=== PATIENT | female | born 1955 | race Caucasian/White ===

== ENCOUNTER 2020-04-12 06:52 | Outpatient (NON) | payer BC, SELFPAY ==
[2020-04-13 21:14] LABS: SARS-CoV-2 RNA PCR Negative
== END 2020-04-12 06:53 ==
LOC: ANHCOVIDDT 07:02
PROVIDERS: Visit Provider Emergency Medicine
DX: B34.9 Viral infection, unspecified (principal); Z20.828 Contact with and (suspected) exposure to other viral communicable diseases
CPT/HCPCS: 87635; C9803; U0003

== ENCOUNTER → 2020-05-25 11:12 | Outpatient (CLI) | payer BC, SELFPAY ==
--- NOTE | ~2020-05-25 | CT_ITS ---
EXAMINATION:CT lung screening DATE: 05/25/2020 11:44 INDICATION: Tobacco use. Current smoker with 41 pack year history. TECHNIQUE: Computed tomography (CT) of the chest was performed without intravenous contrast. Automate d exposure control and iterative reconstruction technique were employed. The dose-length product (DLP ) was 92.98 mGy-cm. COMPARISON: Chest CT 03/05/2019 FINDINGS: There is mild scarring at the lung apices. There are greater than 20 scattered pulmonary no dules in a random distribution measuring up to 7 mm, new from 03/05/19. No pleural effusion. The hear t size is normal. No pericardial effusion. There is mediastinal, bilateral hilar, left supraclavicula r, and right axillary lymphadenopathy. For example, a left supraclavicular node measures 20 x 11 mm. There is aortocaval and left para-aortic lymphadenopathy. There is moderate thoracic spondylosis. IMPRESSION: 1. New pulmonary nodules and chest and abdominal lymphadenopathy suspicious for metastatic disease. U ltrasound-guided core needle biopsy of a left supraclavicular lymph node is recommended. I called thi s result to Dr. Menon. Reviewed, dictated and finalized at location A. ON PICTURE PROJECTIONIST IMPRESSION: 1. New pulmonary nodules and chest and abdominal lymphadenopathy suspicious for metastatic disease. Ultrasound-guided core needle biopsy of a left supraclavic ular lymph node is recommended. I called this result to Dr. Menon.
== END ==
PROVIDERS: PCP Emergency Medicine; Visit Provider Emergency Medicine
DX: Z12.2 Encounter for screening for malignant neoplasm of respiratory organs (principal); Z87.891 Personal history of nicotine dependence; R91.8 Other nonspecific abnormal finding of lung field
CPT/HCPCS: 71271

== ENCOUNTER 2020-06-10 13:09 | Outpatient (CLI) | payer BC, SELFPAY ==
--- NOTE | ~2020-06-10 | US_ITS ---
EXAMINATION: US biopsy lymph node DATE: 06/10/2020 13:59 INDICATION: Pulmonary nodules and thoracic and abdominal lymphadenopathy. TECHNIQUE: The procedure including the risks and benefits was discussed with the patient. Risks discu ssed included bleeding and infection. The patient understood the risks and agreed to proceed. The sk in overlying the left supraclavicular region was prepped and draped in usual sterile fashion. Anesth etic was administered with 1% lidocaine subcutaneously. A 14 gauge core biopsy needle was advanced u nder continuous ultrasound observation to the lesion of interest. 5 core biopsy specimens were obtai abigail, 3 placed in RPMI media and 2 in formalin. The needle was removed and the entry site was cleaned and dressed. Post procedure ultrasound demonstrated no hemorrhage. FINDINGS: Ultrasound images demonstrate a 2.5 x 2.0 x 1.4 cm very hypoechoic left supraclavicular lym ph node. Subsequent images demonstrate biopsy needle advanced into the lymph node. IMPRESSION: 1. Successful Ultrasound-guided biopsy of an enlarged left supraclavicular lymph node Reviewed, dictated and finalized at location A. ENGINEER IMPRESSION: 1. Successful Ultrasound-guided biopsy of an enlarged left supraclavicular lymp h node
== END 2020-06-10 13:10 | disposition home or self-care (01) ==
PROVIDERS: PCP Emergency Medicine; Visit Provider Emergency Medicine
DX: C81.71 Other Hodgkin lymphoma, lymph nodes of head, face, and neck (principal); R91.1 Solitary pulmonary nodule
CPT/HCPCS: 38505; 76942; 88305; 88342

== ENCOUNTER 2020-06-27 10:13 | Outpatient (CLI) | payer BC, SELFPAY ==
--- NOTE | 2020-06-27 16:51 | WPDPFTINT ---
PFT Interpretation This is a pulmonary function test with pre and post-bronchodilator spirometry, plethysmography and diffusing capacity. The test was performed and results interpreted in accordance with the 2019 and 2005 ATS/ERS Task Force guidelines respectively using the Kuldeep/Tara reference equations. Findings: Spirometry: The contour the inspiratory and expiratory flow tracing are normal. The pre bronchodilator FVC is 2.66 L, 105% predicted. The pre bronchodilator FEV1 is 2.06 L, 112% predicted. The FEV1: FVC ratio 78%. The post bronchodilator FVC VC is 2.58 L, representing a 3% decrease. The post bronchodilator FEV1 is 2.08 L, representing 1% increase. Plethysmography: The total lung capacity is 3.38 L, 83% predicted. The functional residual capacity is 1.32 L, 56% predicted. The residual volume is 0.72 L, 47% predicted. Diffusing capacity: The absolute diffusion capacity is 10.6, 62% predicted. The diffusing capacity corrected for alveolar volume is 3.03, 81% predicted. Impression: The spirometry is normal without evidence of an obstructive abnormality. There is no significant improvement after inhaling a single dose of albuterol. There is a result reduction in the residual volume and functional residual capacity with a normal total lung capacity. This is an abnormal but nonspecific lung volume pattern. The absolute diffusing capacity is mildly decreased but normalizes when corrected for alveolar volume. There are no prior studies for comparison
== END 2020-06-27 10:14 | disposition home or self-care (01) ==
PROVIDERS: PCP Emergency Medicine; Visit Provider Internal Medicine Hematology & Oncology
DX: C81.12 Nodular sclerosis Hodgkin lymphoma, intrathoracic lymph nodes (principal); R91.8 Other nonspecific abnormal finding of lung field
CPT/HCPCS: 94060; 94726; 94729

== ENCOUNTER 2020-06-28 09:27 | Outpatient (CLI) | payer BC, SELFPAY ==
--- NOTE | 2020-06-28 | ECHO_ITS ---
Patient Info Name: Maribeth Rodriguez Age: 64 years : 1955 Gender: Female Ht: 60 in Wt: 128 lbs BSA: 1.58 m2 HR: 83 bpm BP: 114 / 78 mmHg Heart Rhythm: Sinus Rhythm Technical Quality: Good Exam Date: 06/28/2020 10:04 AM Exam Location: [facility] Patient Status: Outpatient Admit Date: 06/28/2020 Staff Ordering Physician: ElviaMatt MD Burn Table Operator: Sunni Isaac RDCS Attending Provider: Elvia, Matt Lynch MD Referring Physician: Elvia HACKETT; Exam Type: CA echo doppler color flow Study Info Indications c81.12 - hodgkin lymphoma intrathoracic lymph nodes r91.8 - Lung Nodule Complete two-dimentional, color flow and Doppler transthoracic echocardiogram is performed with agitated saline and with contrast to opacify the left ventricle and to improve the delineation of the left ventricle endocardial borders. Summary 1. Normal LV size and wall thickness, normal LV systolic function, ejection fraction 65-70%. Normal diastolic function. Lipomatus hypertrophy of atrial septum. No significant valve abnormalities, RVSP 36 mmHg. Small pericardial effusion, no echo evidence of tamponade. Sinus rhythm. Left Ventricle Left ventricular chamber dimension is normal. Left ventricular systolic function is normal, estimated at 65-70%. The left ventricular diastolic function is normal. Right Ventricle Right ventricular chamber dimension is normal. Right ventricular systolic function is normal. Left Atria Left atrial chamber dimension is normal. Right Atria Right atrial chamber dimension is normal. Aortic Valve The aortic valve is normal. Pulmonic Valve The pulmonic valve is normal. There is trace pulmonic regurgitation. Mitral Valve The mitral valve has normal leaflets. There is trace mitral valve regurgitation. Tricuspid Valve The tricuspid valve leaflets are normal. Mild pulmonary hypertension, estimated pulmonary arterial systolic pressure is 36 mmHg. Pericardium/Pleural There is small pericardial effusion. Inferior Vena Cava Normal inferior vena cava with >50% collapse upon inspiration consistent with normal right atrial pressure, 10 mmHg. Aorta The aortic root size at the sinus of Valsalva is normal. Left Ventricular Outflow Tract Name Value Normal LVOT 2D LVOT Diameter 1.9 cm LVOT Doppler LVOT Peak Gradient 6 mmHg LVOT Mean Gradient 3 mmHg LVOT VTI 22 cm LVOT VTI/AV VTI Ratio 0.9 LVOT Stroke Volume 66 ml LVOT CO 5.4 l/min LVOT CI 3.4 l/min/m2 Pulmonic Valve Name Value Normal RVOT Doppler RVOT Peak Gradient 2 mmHg PV Doppler
== END 2020-06-28 09:28 | disposition home or self-care (01) ==
PROVIDERS: PCP Emergency Medicine; Visit Provider Internal Medicine Hematology & Oncology
DX: R91.8 Other nonspecific abnormal finding of lung field (principal); C81.12 Nodular sclerosis Hodgkin lymphoma, intrathoracic lymph nodes
CPT/HCPCS: 93306

== ENCOUNTER 2020-08-30 12:47 | Outpatient (CLI) | payer BC, SELFPAY ==
--- NOTE | 2020-08-30 | ECG_ITS ---
Measurements Intervals [place] Rate: 72 P: 39 MD: 118 QRS: 71 QRSD: 88 T: 40 QT: 390 QTc: 428 Interpretive Statements SINUS RHYTHM WITH SHORT MD INTERVAL BORDERLINE ECG Electronically Signed On 08-30-2020 14:17:55 CDT by Keenan Xie D.O.
--- NOTE | 2020-08-30 | ECHO_ITS ---
Patient Info Name: Maribeth Rodriguez Age: 64 years : 1955 Gender: Female Ht: 60 in Wt: 128 lbs BSA: 1.58 m2 HR: 80 bpm BP: 107 / 82 mmHg Heart Rhythm: Sinus Rhythm Technical Quality: Good Exam Date: 08/30/2020 1:11 PM Exam Location: [facility] Patient Status: Outpatient Admit Date: 08/30/2020 Staff Ordering Physician: ElviaMatt MD [employer]: Terence Dixon RDCS, RT Attending Provider: Elvia, Matt Lynch MD Referring Physician: Elvia HACKETT; Exam Type: CA echo doppler color flow Study Info Indications C80.1 - Malignant (primary) neoplasm, unspecified Complete two-dimensional, color flow and Doppler transthoracic echocardiogram is performed. Strain analysis performed. Summary 1. Complete two-dimensional, color flow and Doppler transthoracic echocardiogram is performed. 2. Left ventricular chamber size and systolic function are normal with no regional wall motion abnormalities with an estimated ejection fraction of 60-65%. Calculated ejection fraction is 63%. Mild concentric left ventricular hypertrophy. Global longitudinal strain is mildly decreased at -14%, suggesting early systolic dysfunction. 3. Borderline left atrial enlargement. 4. No significant valve disease. 5. Normal sinus rhythm. Left Ventricle Left ventricular chamber dimension is normal. Left ventricular systolic function is normal, estimated at Empty. There is mildly increased left ventricular wall thickness. Left ventricular septal wall motion is normal. The left ventricular diastolic function is grade I diastolic dysfunction. Global longitudinal strain is mildly elevated at 14 %. Left ventricular chamber size and systolic function are normal with no regional wall motion abnormalities with an estimated ejection fraction of 60-65%. Calculated ejection fraction is 63%. Mild concentric left ventricular hypertrophy. Global longitudinal strain is mildly decreased at -14%, suggesting early systolic dysfunction. Right Ventricle Right ventricular chamber dimension is normal. Right ventricular systolic function is normal. Left Atria Left atrial chamber dimension is mildly enlarged. Right Atria Right atrial chamber dimension is normal. Aortic Valve The aortic valve is trileaflet. There is no aortic valve sclerosis. There is no aortic valve stenosis. There is no aortic valve regurgitation. Pulmonic Valve The pulmonic valve is normal. There is no pulmonic valve stenosis. There is no pulmonic regurgitation. Mitral Valve The mitral valve has normal leaflets. There is no mitral valve stenosis. There is no mitral valve regurgitation. Tricuspid Valve The tricuspid valve leaflets are normal. There is no significant tricuspid valve stenosis. There is trace tricuspid valve regurgitation. No pulmonary hypertension, estimated pulmonary arterial systolic pressure is Empty. Pericardium/Pleural The pericardium appears normal. There is no pericardial effusion. Inferior Vena Cava Normal inferior vena cava with >50% collapse upon inspiration consistent with Empty right atrial pressure, Empty. Aorta The aortic root size at the sinus of Valsalva is normal. The prox ascending aorta size is normal. Left Ventricular Outflow Tract Name Value Normal LVOT 2D --
== END 2020-08-30 12:48 | disposition home or self-care (01) ==
LOC: ANHCARD 12:48
PROVIDERS: PCP Emergency Medicine; Visit Provider Internal Medicine Hematology & Oncology
DX: C81.12 Nodular sclerosis Hodgkin lymphoma, intrathoracic lymph nodes (principal); R42 Dizziness and giddiness; I51.89 Other ill-defined heart diseases
CPT/HCPCS: 93005; 93306

== ENCOUNTER 2020-08-31 12:52 | Outpatient (CLI) | payer BC, SELFPAY ==
--- NOTE | 2020-08-31 17:43 | P.PCNPFT_ITS ---
PFT Interpretation This is a pulmonary function test with pre and post-bronchodilator spirometry, plethysmography and diffusing capacity. The test was performed and results interpreted in accordance with the 2019 and 2005 ATS/ERS Task Force guidelines respectively using the Global Lung Function Initiative-2012 reference equations. Patient demonstrated good effort and c ooperation. Reproducibility criteria were met. The quality of the pre bronchodilator spirometry maneuver was Grade A and post bronchodilator spirometry maneuver was Grade A. Findings: Spirometry: The contour the inspiratory and expiratory flow tracing are normal. The pre bronchodilator FVC is 2.55 L, 96% predicted. The pre bronchodilator FEV1 is 1.92 L, 92% predicted. The FEV1: FVC ratio 75%. The post bronchodilator FVC is 2.60 L, representing a 2% increase. The post bronchodilator FEV1 is 2.04 L, representing a 7% increase. Plethysmography: The total lung capacity is 4.29 L, 97% predicted. Functional residual capacity 2.50 L, 101% predicted. The residual volume is 1.74 L, 95% predicted. Diffusing capacity: The absolute diffusion capacity is 10.1, 51% predicted. The diffusing capacity corrected for alveolar volume is 3.08, 67% predicted. In comparison to previous pulmonary function tests in our laboratory on 06/27/2020 the post bronchodilator FVC is unchanged from 2.58 L to 2.60 L. The post bronchodilator FEV1 is unchanged from 2.08 L to 2.04 L. The total lung capacity has increased from 3.38 L to 4.29 L. The functional residual capacity has increased from 1.32 L to 2.50 L. The residual volume has increased from 0.72 L to 1.74 L. The absolute diffusion capacity is unchanged from 10.6 to 10.1. The diffusing capacity corrected for alveolar volume is unchanged from 3.03 to 3.08 Impression: The spirometry is normal without evidence of an obstructive abnormality. There is no significant improvement after inhaling a single dose of albuterol. The lung volumes are normal. The absolute diffusing capacity is moderately decreased and remains mildly decreased when corrected for alveolar volume. when compared to the previous pulmonary function test on 06/27/2020 there has been a greater than anticipated time dependent increase in total lung capacity, functional residual capacity and residual volume with no change in the forced vital capacity, FEV1, absolute diffusion capacity and diffusing capacity corrected for alveolar volume. Clinical correlation is recommended. PFT Procedure Performed PFT Procedure Performed Spirometry with Pre/Post Bronchodilator Plethysmography (Lung Vol) Diffusing Cap (DLCO)
== END 2020-08-31 12:53 | disposition home or self-care (01) ==
PROVIDERS: PCP Emergency Medicine; Visit Provider Internal Medicine Hematology & Oncology
DX: C81.12 Nodular sclerosis Hodgkin lymphoma, intrathoracic lymph nodes (principal); R42 Dizziness and giddiness; Z51.11 Encounter for antineoplastic chemotherapy
CPT/HCPCS: 94060; 94726; 94729

== ENCOUNTER 2020-09-01 07:33 | Outpatient (CLI) | payer BC, SELFPAY ==
--- NOTE | ~2020-09-01 | PE_ITS ---
EXAMINATION: PET skull to mid thigh DATE: 09/01/2020 09:43 INDICATION: Nodular sclerosing Hodgkin's lymphoma TECHNIQUE: Blood glucose level was 105 mg/dL. 10.56 mCi of 18-fluorodeoxyglucose (18-FDG) was adminis tered i.v. Low dose computed tomography (CT) images were acquired from the base of the brain to the p roximal thighs for attenuation correction and anatomic localization. Positron emission tomography (PE T) images were acquired in the same distribution beginning 63 minutes after injection. The dose-lengt h product (DLP) was 345.58 mGy-cm. COMPARISON: CT, 05/25/2020 FINDINGS: Head/neck: No abnormal FDG uptake is identified. No cervical lymphadenopathy is identified. FDG uptak e in the oral cavity and vocal cords without suspicious CT correlate is likely physiologic. Chest: The previously identified axillary and mediastinal lymphadenopathy has resolved. No abnormal F DG uptake is identified. A right internal jugular Port-A-Cath ends with its tip in the proximal right atrium. No pathologically enlarged thoracic lymph nodes are identified. The heart size is normal. Al though limited by respiratory motion artifact, the previously identified pulmonary nodules have decre ased in size. There is no pleural effusion or pneumothorax. Abdomen/pelvis/proximal thighs: Physiologic FDG activity is present in the bowel and urinary tract. T here are mildly enlarged right obturator lymph nodes without abnormal FDG uptake. The liver, spleen, pancreas, gallbladder, and adrenal glands are normal. The kidneys are unremarkable. There is calcifie d atherosclerosis of the aorta and many of the other arteries. There is no free intraperitoneal gas o r evidence of bowel obstruction. Musculoskeletal: There is mild cervical, thoracic, and lumbar spondylosis. No abnormal FDG uptake is identified. IMPRESSION: 1. Resolution of previously described thoracic lymphadenopathy no abnormal FDG uptake identified, con sistent with treatment response. 2. Decrease in size of multiple pulmonary nodules, likely resolving infection/inflammation or possibl y lymphoma. 3. Right obturator lymphadenopathy without abnormal FDG uptake. Reviewed, dictated and finalized at location B. IMPRESSION: 1. Resolution of previously described thoracic lymphadenopathy no abnormal FDG uptake identified, consistent with treatment response. 2. Decrease in size of multiple pulmonary nodules, likely resolving infection/i nflammation or possibly lymphoma. 3. Right obturator lymphadenopathy without abnormal FDG uptake.
[2020-09-01 07:59] LABS: Glucose Point of Care 105 (65-105)
== END 2020-09-01 07:34 | disposition home or self-care (01) ==
PROVIDERS: PCP Emergency Medicine; Visit Provider Internal Medicine Hematology & Oncology
DX: C81.12 Nodular sclerosis Hodgkin lymphoma, intrathoracic lymph nodes (principal); R42 Dizziness and giddiness
CPT/HCPCS: 78815; 82948; A9552

== ENCOUNTER → 2020-10-14 14:34 | Outpatient (CLI) | payer BC, SELFPAY ==
--- NOTE | ~2020-10-14 | MM_ITS ---
EXAMINATION: MM screening miley BI w demetrius HISTORY: Screening mammogram TECHNIQUE: Craniocaudal and mediolateral oblique 3-D tomosynthesis images were obtained and synthetic 2-D images were generated. CAD analysis was submitted and interpreted. COMPARISON: No prior mammogram is available for comparison at this institution. BREAST PARENCHYMAL COMPOSITION: There are scattered areas of fibroglandular density. FINDINGS: Mild stable fibroglandular asymmetry. There is no evidence of suspicious mass, calcificatio n, or architectural distortion to suggest malignancy in either breast. There has been no suspicious i nterval change. IMPRESSION: 1. No mammographic evidence of malignancy. 2. Recommend routine screening mammography in one year. BI-RADS Category 2: Benign finding(s). Reviewed, dictated and finalized at location A.
== END ==
PROVIDERS: PCP Emergency Medicine; Visit Provider Emergency Medicine
DX: Z12.31 Encounter for screening mammogram for malignant neoplasm of breast (principal)
CPT/HCPCS: 77063; 77067

== ENCOUNTER 2020-11-22 11:51 | Outpatient (CLI) | payer BC, SELFPAY ==
--- NOTE | ~2020-11-22 | PE_ITS ---
EXAMINATION: PET skull to mid thigh DATE: 11/22/2020 13:54 INDICATION: Lung nodules. Nodular sclerosis Hodgkin's lymphoma. TECHNIQUE: Blood glucose level was 91 mg/dL. 10.444 mCi of 18-fluorodeoxyglucose (18-FDG) was adminis tered i.v. Low dose computed tomography (CT) images were acquired from the base of the brain to the p roximal thighs for attenuation correction and anatomic localization. Automated exposure control was e mployed. Dose-length product (DLP) was 320 mGy-cm. Positron emission tomography (PET) images were acq uired in the same distribution. COMPARISON: PET CT 09/01/2020, chest CT 06/10/20, 03/05/19 FINDINGS: Head/neck: There is increased activity in the oral cavity, oropharynx, and glottis without CT correla te, likely physiologic. There are no pathologically enlarged lymph nodes. There is no lymph node acti vity. Chest: There is a right internal jugular port with tip in right atrium. There is mild scarring at lef t lung apex. The pulmonary nodules described on 05/25/20 have resolved. There are peripheral groundglas s opacities in the lungs with an inferior predominance. There is smooth septal thickening in the infe rior lungs. There is peripheral mildly increased activity in the inferior lungs measuring up to 4.1 c m in right lower lobe. The heart size is normal. There are coronary artery calcifications. No pericar dial effusion. There are no pathologically enlarged lymph nodes. There is no lymph node activity. Abdomen/pelvis/proximal thighs: The liver, gallbladder, spleen, pancreas, adrenal glands, and kidneys are normal. There are no dilated loops of bowel. There are no pathologically enlarged lymph nodes. T here is no lymph node activity. There is no free intraperitoneal fluid. There is no osseous malignanc y. IMPRESSION: 1. Deauville score of 1. 2. Worsened diffuse lung disease with a peripheral and lower lung predominance. The differential diag nosis includes mild pulmonary edema, inflammation (including drug reaction), and atypical pneumonia. Reviewed, dictated and finalized at location A. IMPRESSION: 1. Deauville score of 1. 2. Worsened diffuse lung disease with a peripheral and lower lung predominance. The differential diagnosis includes mild pulmonary edema, inflammation (includ ing drug reaction), and atypical pneumonia.
[2020-11-22 12:28] LABS: Glucose Point of Care 91 mg/dl (65-105)
== END 2020-11-22 11:52 | disposition home or self-care (01) ==
PROVIDERS: PCP Emergency Medicine; Visit Provider Internal Medicine Hematology & Oncology
DX: C81.10 Nodular sclerosis Hodgkin lymphoma, unspecified site (principal); R91.8 Other nonspecific abnormal finding of lung field
CPT/HCPCS: 78815; 82948; A9552

== ENCOUNTER → 2021-02-20 09:03 | Outpatient (CLI) | payer BC, SELFPAY ==
--- NOTE | ~2021-02-20 | CT_ITS ---
EXAMINATION: CT chest abdomen pelvis w con DATE: 02/20/2021 09:49 INDICATION: Nodular sclerosing Hodgkin's lymphoma. TECHNIQUE: Computed tomography (CT) of the chest, abdomen, and pelvis was performed with 100 mL Omnip aque 350 intravenous contrast. Automated exposure control and iterative reconstruction technique were employed. The dose-length product was 591.54 mGy-cm. COMPARISON: Chest CT 05/25/2020, PET/CT 11/22/20 FINDINGS: CHEST CT: There is mild scarring at the lung apices. There is mild emphysema. There is widespread peripheral se ptal thickening in the lungs. No bronchiectasis or honeycombing. No pleural effusion. There is a righ t internal jugular port with tip in right atrium. The heart size is normal. There are coronary artery calcifications. No pericardial effusion. There is mild mediastinal lymphadenopathy. For example, 10 x 11 mm right paratracheal lymph node previously measured 14 x 10 mm. There is moderate thoracic spon dylosis. ABDOMEN/PELVIS CT: The liver, spleen, pancreas, adrenal glands, and left kidney are normal. There is a 2.0 cm cyst in ri ght kidney. There is diverticulosis of the colon without evidence of diverticulitis. There are no dil ated loops of bowel. There are no pathologically enlarged lymph nodes. There is no free intraperitone al fluid. There is mild lumbar spondylosis. IMPRESSION: 1. Borderline enlarged mediastinal lymph nodes, stable from 11/22/2020 when PET Deauville score was 1, consistent with treated lymphoma. 2. Diffuse lung disease, improved from 11/22/2020. The differential diagnosis includes mild pulmonary e rayray and inflammation (including drug reaction). Reviewed, dictated and finalized at location A. IMPRESSION: 1. Borderline enlarged mediastinal lymph nodes, stable from 11/22/2020 when PET D eauville score was 1, consistent with treated lymphoma. 2. Diffuse lung disease, improved from 11/22/2020. The differential diagnosis inc ludes mild pulmonary edema and inflammation (including drug reaction).
[2021-02-20 09:32] LABS: Estimated Glomerular Filt Rate > 60
== END ==
PROVIDERS: PCP Emergency Medicine; Visit Provider Internal Medicine Hematology & Oncology
DX: C81.12 Nodular sclerosis Hodgkin lymphoma, intrathoracic lymph nodes (principal); R91.8 Other nonspecific abnormal finding of lung field
CPT/HCPCS: 71260; 74177; Q9967

== ENCOUNTER → 2021-07-25 09:54 | Outpatient (CLI) | payer BC, SELFPAY ==
--- NOTE | ~2021-07-25 | CT_ITS ---
EXAMINATION: CT chest abdomen pelvis w con EXAM DATE: 07/25/2021 10:32 INDICATION: Nodular sclerosis Hodgkin lymphoma, intrathoracic TECHNIQUE: Spiral CT of the chest, abdomen and pelvis was performed following intravenous injection o f 100 mL Omnipaque 350. Axial, coronal and sagittal images chest, abdomen and pelvis were reviewed. Coronal maximum intensity pixel images of chest reviewed. The dose-length product (DLP) for this ex amination was 687.67 mGy-cm. The exposure was tailored according to patient size (auto mA exposure c ontrol), and iterative reconstruction (ASIR) was used as additional dose reduction technique. Compari son is made to prior examination from 02/20/2021. FINDINGS: CHEST: Again perceptible basilar peripheral interlobular septa, probably mild chronic interstitial l donovan disease. Mild emphysema and bronchiectasis. No suspicious lung opacities. There are no pleural o r pericardial effusions. Tracheobronchial tree is patent. There has been mild interval decrease in size of previously seen mediastinal lymphadenopathy. For example a precarinal lymph node that measure d 10 mm on previous exam measures 8 mm on this exam. Appearance is consistent with treated lymphoma. Right-sided portacatheter, tip at the cavoatrial junction. No central pulmonary emboli. There is no p neumothorax. Heart normal in size. There is mild coronary arterial calcification, arterial sclero sis. ABDOMEN PELVIS: The liver, spleen, adrenal glands and pancreas are unremarkable. Gallbladder is unre markable. No biliary obstruction. Portal and splenic veins are patent. Kidneys enhance symmetrical ly. There is no hydronephrosis. The uterus is unremarkable. The bladder is unremarkable. There is no retroperitoneal or pelvic lymphadenopathy. There is mild scattered arteriosclerotic disease. There are no findings to suggest appendicitis. The stomach and small bowel are unremarkable. There is expected amount of colonic stool. No free intraperitoneal gas. There are mild bony degenerativ e changes. IMPRESSION: 1. Slight decrease in size of mediastinal lymph nodes, now within normal size limits. Appearance is consistent with treated lymphoma. 2. Mild interstitial lung disease, emphysema and bronchiectasis. 3. Unremarkable abdomen and pelvis. Reviewed, dictated and finalized at location A. GATHERING TECHNICIAN
[2021-07-25 10:21] LABS: Estimated Glomerular Filt Rate > 60
== END ==
PROVIDERS: PCP Emergency Medicine; Visit Provider Internal Medicine Hematology & Oncology
DX: C81.12 Nodular sclerosis Hodgkin lymphoma, intrathoracic lymph nodes (principal); J84.9 Interstitial pulmonary disease, unspecified; J47.9 Bronchiectasis, uncomplicated
CPT/HCPCS: 71260; 74177; Q9967

== ENCOUNTER 2021-11-18 08:59 | Outpatient (CLI) | payer MEDICARE, BC, SELFPAY ==
--- NOTE | ~2021-11-18 | MM_ITS ---
EXAMINATION: MM screening miley BI w demetrius HISTORY: Screening TECHNIQUE: Craniocaudal and mediolateral oblique 3-D tomosynthesis images were obtained and synthetic 2-D images were generated. CAD analysis was submitted and interpreted. COMPARISON: Comparison to multiple prior studies sequentially, with oldest reviewed study dated 06/17. BREAST PARENCHYMAL COMPOSITION: . Breast composed of scattered areas of fibroglandular density FINDINGS: There is a focal asymmetry in the lateral aspect of the left breast on CC view, middle thir d. Possible architectural distortion at this location. There is right axillary lymphadenopathy, not d efinitely seen on prior examination. IMPRESSION: 1. Focal right breast asymmetry lateral aspect of the left breast on CC view. New right axillary lymp hadenopathy. 2. Additional mammographic views and possible breast ultrasound are recommended. BI-RADS Category 0: Incomplete: Needs additional imaging evaluation. Reviewed, dictated and finalized at location A. IMPRESSION: 1. Focal right breast asymmetry lateral aspect of the left breast on CC view. N ew right axillary lymphadenopathy. 2. Additional mammographic views and possible breast ultrasound are recommended . BI-RADS Category 0: Incomplete: Needs additional imaging evaluation.
--- NOTE | ~2021-11-18 | DEXA_ITS ---
Bone Density Report Name: ELMA NOLASCO Age: 65 Sex: Female Ethnicity: White Date of : 1955 Indication: postmenopausal osteoporosis; cancer; Referring Provider: ANA ALVES Study: Bone densitometry was performed. Exam Date: November 18, 2021 Accession number: [id number] Bone Density: Region BMD T-score Z-score Classification AP Spine (L1-L4) 0.713 -3.0 -1.3 Osteoporosis Femoral Neck (Left) 0.743 -1.0 0.5 Normal Total Hip (Left) 0.807 -1.1 0.1 Osteopenia Femoral Neck (Right) 0.632 -2.0 -0.5 Osteopenia Total Hip (Right) 0.728 -1.8 -0.5 Osteopenia Total Hip Mean 0.768 -1.5 -0.2 Osteopenia World Health Organization criteria for BMD impression classify patients as: Normal (T-score at or above -1.0), Osteopenia (T-score between -1.0 and -2.5), or Osteoporosis (T-score at or below -2.5). 10-year Fracture Risk: FRAX not reported because: Some T-score for Spine Total or Hip Total or Femoral Neck at or below -2.5 Previous Exams: Region Exam Age BMD T-score BMD Change BMD Change Date g/cm2 vs Baseline vs Previous AP Spine(L1-L4) 11/18/2021 65 0.713 -3.0 -0.063* -0.063* 04/06/2019 63 0.776 -2.5 Total Hip(Left) 11/18/2021 65 0.807 -1.1 -0.095* -0.095* 04/06/2019 63 0.901 -0.3 Total Hip(Right) 11/18/2021 65 0.728 -1.8 -0.110* -0.110* 04/06/2019 63 0.837 -0.9 *Denotes significance at 95% confidence level, LSC for AP Spine = 0.022 g/cm2, LSC for Total Hip = 0.027 g/cm2 Clinical Information Provided by Patient: Smokes Has used the following medications: Vitamin D, Calcium Has the following medical conditions: Cancer, HODGKINS LYMPH Patient maximum height was 60 Menopause Age: 54 No regular weight bearing exercise Drinks caffeinated beverages Onset of menses at age 12 Number of children 2 Impression: The patient has osteoporosis, based on the Total Spine T-score. The patient has risk factors, including: smoking. The BMD for the AP Spine(L1-L4) decreased, changing by -0.063 since the last DXA exam. The BMD for the Total Hip(Left) decreased, changing by -0.095 since the last DXA exam. The BMD for the Total Hip(Right) decreased, changing by -0.110 since the last DXA exam. Discussion: INCREASED RISK OF FRACTURE. BONE DENSITY IS UNDESIRABLY LOW AT ONE OR MORE SKELETAL SITES, CONSISTENT WITH POSTMENOPAUSAL OSTEOPOROSIS. This patient's lowest T-score meets the World Health Organization's (WHO) crit
== END 2021-11-18 09:00 ==
PROVIDERS: PCP Emergency Medicine; Visit Provider Emergency Medicine
DX: Z12.31 Encounter for screening mammogram for malignant neoplasm of breast (principal); M81.0 Age-related osteoporosis without current pathological fracture; R92.8 Other abnormal and inconclusive findings on diagnostic imaging of breast; M85.851 Other specified disorders of bone density and structure, right thigh; M85.852 Other specified disorders of bone density and structure, left thigh
CPT/HCPCS: 77063; 77067; 77080

== ENCOUNTER → 2022-01-01 08:14 | Outpatient (CLI) | payer MEDICARE, BC, SELFPAY ==
--- NOTE | ~2022-01-01 | MMUS_ITS ---
EXAMINATION: MM diagnostic miley BI w demetrius, US breast LT limited HISTORY: Focal left breast asymmetry/possible architectural distortion reported in lateral aspect of left breast on 11/18/2021 craniocaudal view. New right axillary lymphadenopathy reported on 11/18/2021 screening mammogram TECHNIQUE: Additional 3-D tomosynthesis images of both breasts were performed and synthetic 2-D image s were generated. CAD analysis was submitted and interpreted. High resolution upper outer and lower-o uter quadrant left breast ultrasound was performed. COMPARISON: 11/18/2021, 10/14/2020, 04/06/2019, outside 06/17/2014 and 09/06/2011 bilateral screening mamm ogram examinations FINDINGS: MAMMOGRAPHIC FINDINGS: No suspicious reproducible mass or architectural distortion of either breast is evident. The suggested adenopathy on 11/18/2021 actually corresponds to the right Port-A-Cath reservoir, not lym phadenopathy. ULTRASOUND: No suspicious mass or shadowing or other significant sonographic finding is noted in the upper outer or lower outer quadrant of the left breast. IMPRESSION: 1. No mammographic evidence of malignancy 2. Routine mammographic screening is recommended. BI-RADS Category 1: Negative Reviewed, dictated and finalized at location A. IMPRESSION: 1. No mammographic evidence of malignancy 2. Routine mammographic screening is recommended. BI-RADS Category 1: Negative
== END ==
PROVIDERS: PCP Emergency Medicine; Visit Provider Emergency Medicine
DX: Z00.01 Encounter for general adult medical examination with abnormal findings (principal); R92.8 Other abnormal and inconclusive findings on diagnostic imaging of breast
CPT/HCPCS: 76642; 77062; 77066; G0279

== ENCOUNTER 2022-01-25 12:45 | Outpatient (CLI) | payer MEDICARE, BC, SELFPAY ==
--- NOTE | ~2022-01-25 | CT_ITS ---
EXAMINATION: CT chest abdomen pelvis w con DATE: 01/25/2022 13:23 INDICATION: Hodgkin lymphoma TECHNIQUE: Transaxial computed tomographic images of the chest, abdomen, and pelvis were obtained aft er the administration of 100 cc of Omnipaque 350 intravenous contrast. The dose-length product (DLP) was 416.82 mGy-cm. Automated exposure control and iterative reconstruction technique were employed. COMPARISON: 07/25/2021 FINDINGS: CHEST CT: There are no pathologically enlarged thoracic lymph nodes. The lungs are free of acute opacities. No pleural effusion or pneumothorax. The heart size is normal. There is calcified coronary artery athero sclerosis. There is mild thoracic spondylosis. ABDOMEN/PELVIS CT: The liver is diffusely low in attenuation when compared with the spleen, consistent with hepatic stea tosis. The spleen, pancreas, gallbladder, and adrenal glands are normal. Cysts of the kidneys measure up to 2 cm on the right. No pathologically enlarged abdominal or pelvic lymph nodes are identified. There is no free intraperitoneal gas or evidence of bowel obstruction. There is mild lumbar spondylos is. A tiny fat-containing umbilical hernia is noted. IMPRESSION: 1. No lymphadenopathy of the chest, abdomen, or pelvis. Reviewed, dictated and finalized at location B.
[2022-01-25 13:22] LABS: Estimated Glomerular Filt Rate > 60
== END 2022-01-25 12:46 | disposition home or self-care (01) ==
LOC: ANHIMG 12:48
PROVIDERS: PCP Emergency Medicine; Visit Provider Internal Medicine Hematology & Oncology
DX: C81.12 Nodular sclerosis Hodgkin lymphoma, intrathoracic lymph nodes (principal); N28.1 Cyst of kidney, acquired
CPT/HCPCS: 71260; 74177; Q9967

== ENCOUNTER 2022-02-02 11:09 | Outpatient (CLI) | payer MEDICARE, BC, SELFPAY ==
--- NOTE | ~2022-02-02 | MR_ITS ---
EXAMINATION: MR lumbar spine wo con DATE: 02/02/2022 11:41 INDICATION: Low back pain. Right-sided sciatica. TECHNIQUE: Magnetic resonance imaging (MRI) of the lumbar spine was performed without intravenous con trast. Sequences included sagittal T2-weighted FSE, sagittal T2-weighted FS FSE, sagittal T1-weighted FSE, and axial T2-weighted FSE. COMPARISON: None FINDINGS: There is 3 degrees dextrocurvature of thoracolumbar spine. There is 4 mm anterolisthesis of L5 on S1. Vertebral body heights are normal. There is a hemangioma in L2 vertebral body. There is mi ldly decreased disc height at L4-L5 and L5-S1. The distal spinal cord signal intensity is normal. The conus medullaris is at L1. There is a 2.0 cm cyst in right kidney. The following disc levels are spe cifically discussed: L1-L2: The disc does not extend beyond the endplate margin. There is no facet joint osteoarthritis. T here is no neural foraminal stenosis. There is no central canal stenosis. L2-L3: The disc does not extend beyond the endplate margin. There is mild right facet joint osteoarth ritis. There is no neural foraminal stenosis. There is no central canal stenosis. L3-L4: The disc is bulging. There is severe bilateral facet joint osteoarthritis. There is mild right neural foraminal stenosis. There is mild central canal stenosis. L4-L5: The disc is bulging and has an annular fissure. There is severe bilateral facet joint osteoart hritis. There is mild bilateral neural foraminal stenosis. There is mild central canal stenosis. L5-S1: The disc does not extend beyond the endplate margin. There is severe bilateral facet joint ost eoarthritis. There is mild right neural foraminal stenosis. There is no central canal stenosis. IMPRESSION: 1. Mild lumbar spondylosis. Reviewed, dictated and finalized at location A. IMPRESSION: 1. Mild lumbar spondylosis.
== END 2022-02-02 11:10 ==
PROVIDERS: PCP Emergency Medicine; Visit Provider Emergency Medicine
DX: M54.41 Lumbago with sciatica, right side (principal); M47.896 Other spondylosis, lumbar region
CPT/HCPCS: 72148

== ENCOUNTER → 2022-02-07 14:24 | Outpatient (CLI) | payer MEDICARE, BC, SELFPAY ==
--- NOTE | ~2022-02-07 | US_ITS ---
US axilla RT DATE: 02/07/2022 14:59 INDICATION: Lymphadenopathy TECHNIQUE: Real-time imaging of the right axillary soft tissues was performed. COMPARISON: 01/25/2022 CT chest FINDINGS: No suspicious mass or shadowing or enlarged lymph nodes are identified. IMPRESSION: Negative Reviewed, dictated and finalized at Location A. Reviewed, dictated and finalized at location B. IMPRESSION: Negative
== END ==
PROVIDERS: PCP Emergency Medicine; Visit Provider Emergency Medicine
DX: R59.1 Generalized enlarged lymph nodes (principal)
CPT/HCPCS: 76882

== ENCOUNTER → 2023-03-19 14:07 | Outpatient (CLI) | payer MEDICARE, BC, SELFPAY ==
--- NOTE | ~2023-03-19 | MM_ITS ---
EXAMINATION: MM screening [facility] BI w demetrius HISTORY: Screening mammogram TECHNIQUE: Craniocaudal and mediolateral oblique 3-D tomosynthesis images were obtained and synthetic 2-D images were generated. CAD analysis was submitted and interpreted. COMPARISON: 01/01/2022, 11/18/2021, 10/14/2020, 04/06/2019 BREAST PARENCHYMAL COMPOSITION: There are scattered areas of fibroglandular density. FINDINGS: No suspicious mass, calcification, or architectural distortion are identified in either moriah ast to suggest malignancy. There has been no suspicious interval change. IMPRESSION: 1. No mammographic evidence of malignancy. 2. Recommend routine screening mammography in one year. BI-RADS Category 1: Negative Reviewed, dictated and finalized at location A.
== END ==
PROVIDERS: PCP Emergency Medicine; Visit Provider Emergency Medicine
DX: Z12.31 Encounter for screening mammogram for malignant neoplasm of breast (principal)
CPT/HCPCS: 77063; 77067

== ENCOUNTER 2023-04-09 09:12 | Outpatient (CLI) | payer MEDICARE, BC, SELFPAY ==
--- NOTE | 2023-04-09 | EST_ITS ---
Patient Info Name: Maribeth Rodriguez Age: 67 years : 1955 Gender: Female Ht: 60 in Wt: 145 lbs BSA: 1.69 m2 Exam Date: 04/09/2023 11:05 AM Exam Location: Echo Lab Patient Status: Outpatient Admit Date: 04/09/2023 Staff Ordering Physician: Cruzito Menon MD Attending Provider: Cruzito Menon MD Exercise Technologist: Sunni Isaac RDCS Exercise Physician: Keenan Xie DO Exam Type: CA stress test treadmill w NM Study Info Indications I25.10 - CORONARY ARTERY DISEASE OF [place] ARTERY WITHOUT ANGINA PECTORIS A nuclear stress test was performed. Summary 1. 1. Abnormal Keshawn exercise stress test for ischemic ST changes by ECG criteria. 2. 2. Reduced functional capacity, achieving 6.8 METs of workload. 3. 3. Appropriate HR response to exercise. 4. 4. Appropriate HR recovery at 1 minute post exercise. 5. 5. Nuclear scan to follow and will be reported separately. Please correlate with it. 6. 6. Patient informed of the above results. Protocol: Keshawn Stress ECG Details Stage: REST Duration (min): 1 min : 1 sec Speed (mph): 0.0 Grade (%): 0 HR (bpm): 69 SBP (mmHg): 131 DBP (mmHg): 85 METS: --- Stage: REST Duration (min): 7 min : 50 sec Speed (mph): 0.0 Grade (%): 0 HR (bpm): 70 SBP (mmHg): 131 DBP (mmHg): 85 METS: --- Stage: STAGE 1 Duration (min): 1 min : 0 sec Speed (mph): 1.7 Grade (%): 10 HR (bpm): 104 SBP (mmHg): 131 DBP (mmHg): 85 METS: --- Stage: STAGE 1 Duration (min): 2 min : 0 sec Speed (mph): 1.7 Grade (%): 10 HR (bpm): 117 SBP (mmHg): 131 DBP (mmHg): 85 METS: --- Stage: STAGE 1 Duration (min): 3 min : 0 sec Speed (mph): 1.7 Grade (%): 10 HR (bpm): 119 SBP (mmHg): 185 DBP (mmHg): 87 METS: --- Stage: STAGE 2 Duration (min): 1 min : 0 sec Speed (mph): 2.5 Grade (%): 12 HR (bpm): 130 SBP (mmHg): 185 DBP (mmHg): 87 METS: --- Stage: STAGE 2 Duration (min): 1 min : 17 sec Speed (mph): 2.5 Grade (%): 12 HR (bpm): 132 SBP (mmHg): 185 DBP (mmHg): 87 METS: --- Stage: RECOVERY Duration (min): 0 min : 42 sec Speed (mph): 0.0 Grade (%): 0 HR (bpm): 113 SBP (mmHg): 191 DBP (mmHg): 95 METS: --- Stage: RECOVERY Duration (min): 1 min : 42 sec Speed (mph): 0.0 Grade (%): 0 HR (bpm): 97 SBP (mmHg): 188 DBP (mmHg): 94 METS: --- Stage: RECOVERY Duration (min): 2 min : 42 sec Speed (mph): 0.0 Grade (%): 0 HR (bpm): 84 SBP (mmHg): 188 DBP (mmHg): 94 METS: --- Stage: RECOVERY Duration (min): 3 min : 42 sec Speed (mph): 0.0 Grade (%): 0 HR (bpm): 72 SBP (mmHg): 153 DBP (mmHg): 78 METS: --- Stage: RECOVERY Duration (min): 4 min : 42 sec Speed (mph): 0.0 Grade (%): 0 HR (bpm): 68 SBP (mmHg): 153 DBP (mmHg): 78 METS: --- Stage: RECOVERY Duration (min): 5 min : 24 sec Speed (mph): 0.0 Grade (%): 0 HR (bpm): 68 SBP (mmHg): 146 DBP (mm
--- NOTE | ~2023-04-09 | NM_ITS ---
EXAMINATION: NM stress w perf spect multi DATE: 04/09/2023 12:05 INDICATION: Coronary artery disease of [place] coronary artery. TECHNIQUE: Rest images were obtained following intravenous administration of 11.1 mCi Tc99m tetrofosm in (Myoview). The patient performed an exercise activity. At peak exercise, 32.7 mCi Tc99m tetrofosmi n (Myoview) was administered intravenously, and stress images were obtained. Data was reconstructed i nto short axis and horizontal and vertical long axis SPECT images. Gated SPECT images were also obtai abigail. COMPARISON: CT 01/25/2022 FINDINGS: There is no definite reversible or fixed perfusion abnormality to suggest ischemia or infar ction. There is no segmental wall motion abnormality. Left ventricular ejection fraction measures > 70%. IMPRESSION: 1. No definite ischemia or infarct. 2. Normal left ventricular ejection fraction measuring >70%. Reviewed, dictated and finalized at location E. E VEHICLE SERVICE ATTENDANT
== END 2023-04-09 09:13 | disposition home or self-care (01) ==
PROVIDERS: PCP Emergency Medicine; Visit Provider Emergency Medicine
DX: I25.10 Atherosclerotic heart disease of native coronary artery without angina pectoris (principal)
CPT/HCPCS: 78452; 93017; A9502

== ENCOUNTER 2024-06-16 11:11 | Outpatient (CLI) | payer MEDICARE, SELFPAY ==
--- NOTE | ~2024-06-16 | DEXA_ITS ---
Bone Density Report Name: ELMA NOLASCO Age: 68 Sex: Female Ethnicity: White Date of : 1955 Indication: postmenopausal; screening for osteoporosis; height loss; cancer; Referring Provider: TERESE, JAMES Mcdonough Study: Bone densitometry was performed. Exam Date: June 16, 2024 Accession number: [id number] Bone Density: Region BMD T-score Z-score Classification AP Spine(L1-L4) 0.763 -2.6 -0.6 Osteoporosis Femoral Neck (Left) 0.822 -0.2 1.4 Normal Total Hip (Left) 0.880 -0.5 0.9 Normal Femoral Neck (Right) 0.806 -0.4 1.3 Normal Total Hip (Right) 0.802 -1.1 0.2 Osteopenia Total Hip Mean 0.841 -0.8 0.6 Normal World Health Organization criteria for BMD impression classify patients as: Normal (T-score at or above -1.0), Osteopenia (T-score between -1.0 and -2.5), or Osteoporosis (T-score at or below -2.5). 10-year Fracture Risk: FRAX not reported because: Some T-score for Spine Total or Hip Total or Femoral Neck at or below -2.5 Treated for osteoporosis Clinical Information Provided by Patient: Smokes Is being treated for osteoporosis Has used the following medications: Prolia (i.e. denosumab), Vitamin D, Calcium Has the following medical conditions: Cancer Patient maximum height was 62 Menopause Age: 55 No regular weight bearing exercise Drinks caffeinated beverages Onset of menses at age 12 Number of children 2 Impression: The patient has osteoporosis, based on the Total Spine T-score. The patient has risk factors, including: smoking. Discussion: It is important to ask patients whether they are taking their medications and to encourage continued and appropriate compliance with their osteoporosis therapies to reduce fracture risk. It is also important to review their risk factors and encourage appropriate calcium and vitamin D intakes, exercise, fall prevention and other lifestyle measures. Follow-Up: Consider a repeat BMD and Vertebral Fracture Assessment (VFA) exam in 2 years or sooner if medically necessary, to reassess this patient's status. Reported by: HUGO on 06/16/2024 11:38:00 AM. Reviewed, dictated and finalized at location AEsperanza BRIONES
--- OUTSIDE RECORDS SUMMARY | 2024-06-16 12:20 | XMS_ITS | Clinical Summary ---
Author Organization [facility] Address [address] [place] [id number] Care Team Providers Care Firewall Security Engineer Name Role Phone Osmel Ortiz MD Primary Care Provider [phone] Allergies Active Allergy Reactions Criticality Noted Date Comments Penicillins HIVES 11/07/2017 Medications Medication Sig Dispensed Refills Start Date End Date Status ciprofloxacin (CIPRO) 0.3 % ophthalmic solution 1 to 2 drops, four times per day for three to five days 5 mL 08/06/2018 Active Surgical History Surgery Date Site/Laterality Comments TOTAL KNEE REPLACEMENT SECTION, CLASSIC Medical History Medical History Date Comments Depression Thyroid disease High cholesterol Social History Tobacco Use Types Packs/Day Years Used Date Smoking Tobacco: Every Day Cigarettes Smokeless Tobacco: Never Inadequate Housing Answer Date Recorded Social Determinants: Housing (Overall Score Help er) 0 01/16/2019 Sex and Gender Information Value Date Recorded Sex Assigned at Not on file Gender Identity Not on file Sexual Orientation Not on file Obstetrics History Last Filed Vital Signs Vital Sign Reading Time Taken Comments Blood Pressure 128/80 08/06/2018 2:13 PM CDT Pulse 100 08/06/2018 2:13 PM CDT Temperature 36.8 ??C (98.2 ??F) 08/06/2018 2:13 PM CD T Respiratory Rate 16 08/06/2018 2:13 PM CDT Oxygen Saturation 97% 08/06/2018 2:13 PM CDT Inhaled Oxygen Concentration - - Weight 63.5 kg (140 lb) 08/06/2018 2:13 PM CDT Height 154.9 cm (5' 1 ) 08/06/2018 2:13 PM CDT Body Mass Index 26.45 08/06/2018 2:13 PM CDT Plan of Treatment Health Maintenance Due Date Last Done Comments Depression Screening 1968 DTaP/Tdap/Td Vaccine (1 - Tdap) 12/17/1975 Breast Cancer Screening 1996 CT Colonography 2001 Cologuard 2001 Colonoscopy 2001 Colorectal Cancer Screen 2001 Fecal Occult Blood 2001 Sigmoidoscopy 2001 Pneumococcal Vaccine 50+ (1 of 1 - PCV) 2006 Shingles Vaccine (1 of 2) 2006 Osteoporosis Screening 2021 COVID-19 Vaccine (1 - 2023- season) 2024 Influenza Vaccine (#1) 2024 8, 02/16/2017, 02/18/2016, Additional history exists Respiratory Syncytial Virus (RSV) Vaccine 60+ (1 - 1-dose 75+ series) 12/17/2031 HPV Vaccine Aged Out No longer eligi ble based on patient's age to complete this topic Hepatitis A Vaccine Aged Out No longe r eligible based on patient's age to complete this topic Hepatitis B Vaccine (For Physician/APC Discussion) Aged Out No longer elig ible based on patient's age to complete this topic Meningococcal Serogroup B Vaccine Aged Out No longer eligible based on patient's age to complete this topic Meningococcal Vaccine Aged Out No colten renny eligible based on patient's age to complete this topic Care Teams Firewall Security Engineer Relationship Specialty Start Date End Date Osmel Ortiz MD PCP - General 04/12/18
--- OUTSIDE RECORDS SUMMARY | 2024-06-16 12:20 | XMS_ITS | Clinical Summary ---
Author Organization [facility] Address [address] [place] [address] Phone Care Team Providers Care Account Assistant Name Role Phone Matt Gan MD Unavailable [phone] Cindy Vivas MD Primary Care Provi rome Allergies Active Allergy Reactions Criticality Noted Date Comments Penicillin V Hives Medium 06/02/2020 Medications atorvastatin (LIPITOR) 40 MG Tablet 04/11/2020 Active ergocalciferol (VITAMIN D) 11773 UNIT Capsule Once every other week 08/02/2020 Active Vitamin D, Cholecalciferol, 10 MCG (400 UNIT) Capsule Take 5,000 Units by mouth. Active hydroxychloroqui ne (PLAQUENIL) 200 MG Tablet 01/23/2022 Activ e venlafaxine (EFFEXOR-XR) 150 MG CAPSULE SR 24 HR 12/21/2021 Active celecoxib (CeleBREX) 100 MG Capsule Take 100 mg by mouth 2 times daily. 06/27/2022 Active HYDROcodone-acet aminophen (NORCO) 5-325 MG Tablet TAKE 1 TABLET BY MOUTH EVERY 8-12 HOURS NEEDED 06/27/2022 Active Synthroid 100 MCG Tablet 07/28/2023 Active meloxicam (MOBIC) 15 MG Tablet TAKE 1 TABLET BY MOUTH DAILY WITH MEALS 12/22/2023 Active Active Problems Problem Noted Date Diagnosed Date Dizziness 08/25/2020 Hodgkin lymphoma, unspecified, intrathoracic lym ph nodes 06/16/2020 Lung nodules 06/02/2020 Mediastinal lymphadenopathy 06/02/2020 Hypothyroidism 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 current pathological fracture Encounters Date Type Department Care Team Description 05/28/2024 11:00 AM ENGAGEMENT ENGINEER Clinical [facility] [address] [place] [address] Cindy Vivas MD Age-related osteoporosis without current pathological fracture Discharge Disposition: Discharged to home or Selfcare 05/28/2024 Travel 05/22/2024 Telephone [facility] [address] [place] [address] Cornelius Capellan MD 05/18/2024 Travel from Last 3 Months Immunizations Immunization Administration Dates Next Due Influenza Vaccine 02/16/2017,02/18/2016,02/27/20 15 Influenza Vaccine, MDCK,quad rivalent, pres free 02/25/2019 Influenza Vaccine, Quadrivalent, PF 02/09/2020,1 Influenza, Seasonal, Injectable, Undefined 02/01,02/22/2013 Family History Medical History Relation Name Comments Ovarian Cancer Mother Relation Name Status Comments Mother Social History Tobacco Use Types Packs/Day Years Used Date Smoking Tobacco: Every Day Cigarettes Smokeless Tobacco: Never Tobacco Cessation:Ready to Q uit: Yes; Counseling Given: Yes Alcohol Use Standard Drinks/Week Comments Yes 2 (1 standard drink = 0.6 oz pur e alcohol) PHQ-2 Answer Date Recorded Total Score - Questions 1-9 0 10/18 Comments No Sex and Gender Information Value Date Recorded Sex Assigned at Not on file Legal Sex Female 8:50 AM ENGAGEMENT ENGINEER Gender Identity Not on file Sexual Orientation Not on file Last Filed Vital Signs Vital Sign Reading Time Taken Comments Blood Pressure 120/74 05/28/2024 11:04 AM ENGAGEMENT ENGINEER Pulse 77 05/28/2024 11:04 AM ENGAGEMENT ENGINEER Temperature 36.3 ??C (97.3 ??F) 05/28/2024 11:[address] Respiratory Rate 16 05/28/2024 11:04 AM ENGAGEMENT ENGINEER Oxygen Saturation 96% 05/28/2024 11:04 AM ENGAGEMENT ENGINEER Inhaled Oxygen Concentration - - Weight 62.3 kg (137 lb 4.8 oz) 05/28/2024 11:04 AM ENGAGEMENT ENGINEER Height 152.4 cm (5') 02/07/2024 11:01 AM CDT Body Mass Index 26.81 02/07/2024 11:01 AM CDT Plan of Treatment Upcoming Encounters Date Type Department Care Team (Late st Contact Info) Description 08/07/2024 10:15 AM CDT Office Visit [facility] [address] [phone] Matt Gan MD [address] [place] [address] Health Maintenance Due Date Last Done Comments DEXA Bone Density 1955 Hepatitis C Virus (HCV) Screening 1955 TdaP Immunization 1955 Zoster Immunization (1 of 2) 12/17/1975 Colonoscopy 2001 Colorectal Cancer Screening 2001 Cologuard 2006 Immunochemical Fecal Occult Blood 2006 Mammogram 2006 SARS-COV-2 Immunization (7 - Pfizer risk 2023- season) 2024 03/12/2024, 05/03/2022, 10/30/2021, Additional history exists Pneumococcal Immunization (50+ years) Completed 02/14/2022 Pneumococcal Immunization Combined Discontinued 02/14/2022 Respiratory Syncytial Virus (RSV) Immunization (Adult) Completed 02/19/2023 Influenza Immunization Completed , 02/19/2023, 02/14/2022, Additional history exists Hepatitis B Immunization Aged Out No longer eligible based on patient's age to complete this topic Meningococcal Immunization (ACWY) Aged Out No longer eligible based on patient's age to complete this topic Rotavirus Immunization Aged Out No lo nger eligible based on patient's age to complete [place] [address] MEDICARE C [facility] MEDICARE C BCBS PPO Care Teams Account Assistant Relationship Specialty [place] [id number] [facility] [address] [place] [address] PCP - General Endocrinology 05/18/24 Matt Gan MD [address] [place] [phone] Consulting Physician Oncology 06/02/20
--- OUTSIDE RECORDS SUMMARY | 2024-06-16 12:20 | XMS_ITS ---
Author Organization [facility] Address [address] [place] [address] Phone Care Team Providers Care Radiotelephone Technical Operator Name Role Phone Matt Gan MD Unavailable [phone] Cindy Vivas MD Primary Care Provi rome Active Problems Problem Noted Date Diagnosed Date Dizziness 08/25/2020 Hodgkin lymphoma, unspecified, intrathoracic lym ph nodes 06/16/2020 Lung nodules 06/02/2020 Mediastinal lymphadenopathy 06/02/2020 Hypothyroidism 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 current pathological fracture Current Treatment and Therapy Plans HODGKINS / ABVD - CCSCI* Plan Start Date:06/15/2020 Plan Provider:Matt Gan MD Linked Problems Nodular sclerosis Hodgkin ly mphoma of intrathoracic lymph nodes (HCC) Treatment Medications Current Day (Day 1 , Cycle 5 - Planned for 11/11/2020) Next Day (Day 15, Cycle 5 - Planned for 11/25/2020) bleomycin (BLENOXANE) chemo infusionbleomycin (BLEOCIN)dacarbazine (DTIC) chemo infusionDOXOrubicin (ADRIAMYCIN)vinBLAStine (VELBAN) chemo infusion dacarbazine (DTIC) 590 mg in sodium chloride 0.9 % 500 mL chemo infusionDOXOrubicin (ADRIAMYCIN) injection 40 mgvinBLAStine sulfate 9.5 mg in sodium chloride 0.9 % 50 mL chemo infusion dacarbazine (DTIC) 595 mg in sodium chloride 0.9 % 500 mL chemo infusionDOXOrubicin (ADRIAMYCIN) injection 39.6 mgvinBLAStine Sulfate 9.5 mg in sodium chloride 0.9 % 50 mL chemo infusion Past Treatment and Therapy Plans ONCOLOGY SUPPORTIVE CARE Plan Name Start Date Discontinue Date Treatment Medications Discontinue Reason Plan Provider Cycles SUPPORT - BONE MARROW BIOPSY - CCSCI 06/23/2020 08/22/2021 No medications scheduled. Plan Clean Up Matt Gan MD 1 of 1 cycle started Lifetime Dose Tracking * Chemical Lifetime Dose Automatic Entry Manual Entr y Doxorubicin 201.153 mg/m2 (316.8 mg) 201.153 mg/m2 (3 16.8 mg) 0 mg/m2 (0 mg) Bleomycin 105 Units 105 Units 0 Units
--- OUTSIDE RECORDS SUMMARY | 2024-06-16 12:21 | XMS_ITS | Referral Summary ---
Author Organization [facility] Care Team Providers Care Legal Advisor Name Role Phone Cruzito Menon MD Primary Care Provider Encounters Date Type Department Care Team Description 04/15/2024 Telephone [facility] [address] [phone] Cindy Vivas MD 04/14/2024 Telephone [facility] Diabetes and Endocrinology [address] [place] [phone] Cindy Vivas MD Reclast Infusion 04/13/2024 9:00 PM OCCUPATIONAL HEALTH PHYSICIAN - 04/13/2024 11:59 PM OCCUPATIONAL HEALTH PHYSICIAN Hospital Encounter [address] [address] Acquired hypothyroidism; Age-related osteoporosis without current pathological fracture; Vitamin D deficiency Discharge Disposition: Discharge to home or self care 04/13/2024 1:15 PM OCCUPATIONAL HEALTH PHYSICIAN Lab [facility] Outpatient Lab at [address] [phone] Vitamin D deficiency (Primary Dx); Hypothyroidism 04/13/2024 1:00 PM OCCUPATIONAL HEALTH PHYSICIAN Office Visit [facility] Diabetes and Endocrinology [address] [place] [address] [phone] Cindy Vivas MD Age-related osteoporosis without current pathological fracture (Primary Dx); Acquired hypothyroidism; Vitamin D deficiency; Tobacco abuse 03/30/2024 Telephone [facility] [address] [phone] Cindy Vivas MD infusion from Last 3 Months Allergies Active Allergy Reactions Criticality Noted Date Comments Penicillins Hives Medium 02/25/2019 Medications atorvastatin (LIPITOR) 40 mg tablet 04/11/2020 Active ergocalciferol (VITAMIN D) 50,000 unit capsule 05/05/2019 Active cholecalciferol (VITAMIN D-3) 400 unit capsule Take 13 tablet/caps ule (5,200 Units total) by mouth Active escitalopram (LEXAPRO) 10 mg tablet Take 1 tablet (10 mg total) by mouth daily 09/12/2021 Active hydrOXYchloroQUI NE (PLAQUENIL) 200 mg tablet 04/01/2022 Activ e Synthroid 100 mcg tablet Take 1 tablet (100 mcg total) by mouth daily 90 tablet 1 04/03/2022 Active meloxicam (MOBIC) 15 mg tablet TAKE 1 TABLET BY MOUTH DAILY WITH MEALS 12/22/2023 Active Active Problems Problem Noted Date Diagnosed Date Hypothyroidism 04/02/2022 Assessment & Plan (04/14/2024 3:42 PM OCCUPATIONAL HEALTH PHYSICIAN): Chronic, unknown status Patient currently on Synthroid Plan to repeat thyroid function test and further plans based on it Assessment & Plan (04/01/2023 1:10 PM OCCUPATIONAL HEALTH PHYSICIAN): Chronic, uncontrolled Patient on Synthroid 100 mcg oral daily Plan to repeat thyroid function test today and further plans based on it Assessment & Plan (04/02/2022 3:05 PM OCCUPATIONAL HEALTH PHYSICIAN): Pt currently on Synthroid 112 mcg oral daily check TSH and further plans based on it 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 current pathological fracture 04/02/2022 Assessment & Plan (04/14/2024 3:41 PM OCCUPATIONAL HEALTH PHYSICIAN): Chronic, unknown status Status post Reclast infusion 04/06/2022, 04/08/2023 Tolerated well Patient is due for another Reclast after Labs today Fall precautions Continue current vitamin-D and calcium supplements Scheduled for bone density scan soon Follow up in one year Assessment & Plan (04/01/2023 1:11 PM OCCUPATIONAL HEALTH PHYSICIAN): Status post Reclast infusion 04/06/2022 Tolerated well Patient is due for another Reclast after 04/06/2023 Labs today Fall precautions Continue current vitamin-D and calcium supplements Plan to repeat bone density scan next year Follow up in one year Assessment & Plan (04/02/2022 3:04 PM OCCUPATIONAL HEALTH PHYSICIAN): Severe worsening Osteoporosis intolerant to oral fosamax Start Reclast infusion ( will schedule this at [facility] infusion center ) Advise to continue current Vitamin D and calcium supplementation Labs today Fall precautions Cut back on smoking discuss with dentist regarding Reclast infusion Follow up in one year Vitamin D deficiency 04/02/2022 Assessment & Plan (04/14/2024 3:42 PM OCCUPATIONAL HEALTH PHYSICIAN): Check levels today Assessment & Plan (04/01/2023 1:11 PM OCCUPATIONAL HEALTH PHYSICIAN): Continue current vitamin-D replacement therapy Assessment & Plan (04/02/2022 3:06 PM OCCUPATIONAL HEALTH PHYSICIAN): Pt on replacement therapy Check levels today and further plans based on it Tobacco abuse 04/02/2022 Assessment & Plan (04/14/2024 3:42 PM OCCUPATIONAL HEALTH PHYSICIAN): Counseled advised patient to cut back and quit smoking Assessment & Plan (04/01/2023 1:11 PM OCCUPATIONAL HEALTH PHYSICIAN): Counseled patient to cut back and quit smoking Assessment & Plan (04/02/2022 3:06 PM OCCUPATIONAL HEALTH PHYSICIAN): Counseled pt to work on cutting back on smoking Dizziness 08/25/2020 Hodgkin's lymphoma 06/16/2020 Lung nodules 06/02/2020 Mediastinal lymphadenopathy 06/02/2020 Immunizations Name Administration Dates Next Due Influenza, Quadrivalent, Comfort l Culture-based MDCK, Preservative Free, Antibiotic Free, Intramuscular 02/25/2019 Influenza, Quadrivalent, Spl it, Preservative Free, Intramuscular 02/09/2020,03/13/2018 Influenza, Trivalent, IM (MDV) 02/16/2021,2013,02/22/2013 Influenza, Trivalent, Preser vative Free, Intramuscular 02/16/2017,02/18/2016,02/26/2015 Social History Tobacco Use Types Packs/Day Years Used Date Smoking Tobacco: Every Day Tobacco Cessation:Ready to Q uit: Not Asked; Counseling Given: Not Answered Comments Unknown Sex and Gender Information Value Date Recorded Sex Assigned at Not on file Legal Sex Female 2:11 PM OCCUPATIONAL HEALTH PHYSICIAN Gender Identity Not on file Sexual Orientation Not on file Last Filed Vital Signs Vital Sign Reading Time Taken Comments Blood Pressure 120/82 04/13/2024 1:03 PM OCCUPATIONAL HEALTH PHYSICIAN Pulse 82 04/13/2024 1:03 PM OCCUPATIONAL HEALTH PHYSICIAN Temperature 37.1 ??C (98.8 ??F) 10/19/2021 2:34 PM CD T Respiratory Rate 16 04/13/2024 1:03 PM OCCUPATIONAL HEALTH PHYSICIAN Oxygen Saturation 98% 10/19/2021 2:34 PM CDT Inhaled Oxygen Concentration - - Weight 65.8 kg (145 lb) 04/01/2023 12:57 PM OCCUPATIONAL HEALTH PHYSICIAN Height 152.4 cm (5') 04/13/2024 1:03 PM OCCUPATIONAL HEALTH PHYSICIAN Body Mass Index 84883.37 04/01/2023 12:57 PM OCCUPATIONAL HEALTH PHYSICIAN Plan of Treatment Not on file Procedures Procedure Name Priority Date/Time Associated Diagnosis Comments EGFR Routine 04/13/2024 4:00 PM OCCUPATIONAL HEALTH PHYSICIAN Age-related osteoporosis without current pathological fracture VITAMIN D 25 HYDROXY Routine 04/13/2024 4:00 PM OCCUPATIONAL HEALTH PHYSICIAN Vitamin D deficiency COMPREHENSIVE METABOLIC PANEL Routine 04/13/2024 4:00 PM OCCUPATIONAL HEALTH PHYSICIAN Age-related osteoporosis without current pathological fracture T4, FREE Routine 04/13/2024 4:00 PM OCCUPATIONAL HEALTH PHYSICIAN Acquired hypothyroidism TSH Routine 04/13/2024 4:00 PM OCCUPATIONAL HEALTH PHYSICIAN Acquired hypothyroidism from Last 3 Months Results * eGFR (04/13/2024 4:00 PM OCCUPATIONAL HEALTH PHYSICIAN) eGFR >90 >=60 mL/min/1. 73 m2 Comment: Interpretive Data Reference Interval Normal ?>/= 90 mL/min/1.73m2 Mildly decreased* ? 60 - 89 mL/min/1.73m2 Mildly to moderately decreased ?45 - 59 mL/min/1.73m2 Moderately to severely decreased ??30 - 44 mL/min/1.73m2 Severely decreased ?15 - 29 mL/min/1.73m2 Kidney Failure ?< 15 ??mL/min/1.73m2 *Relative to young adult level Estimated glomerular filtration rate is determined by the 2020 CKD-EPI equation recommended by the National Kidney Foundation (A Unifying Approach to GFR Estimation: Recommendations of the NKF-ASK Task Force on Reassessing the Inclusion of Race in Diagnosing Kidney Disease, JASN 2020). The CKD-EPI equation should not be used for patients with unstable renal function and has not been validated in children and those over 70. Current interpretive data was last reviewed 2021. Blood 04/13/2024 4:00 PM OCCUPATIONAL HEALTH PHYSICIAN 04/13/2024 9:47 PM OCCUPATIONAL HEALTH PHYSICIAN us Cindy Pelletier MD LAB BLOOD ORDERABLE S Final Result Performing Organization Address City/State/ZIP Co ar Phone Number [facility] [address] Department [place] [address] * Vitamin D 25 hydroxy (04/13/2024 4:00 PM OCCUPATIONAL HEALTH PHYSICIAN) Vitamin D 25-OH 47 30 - 80 ng/mL Blood 04/13/2024 4:00 PM OCCUPATIONAL HEALTH PHYSICIAN 04/13/2024 9:36 PM OCCUPATIONAL HEALTH PHYSICIAN us Cindy Pelletier MD LAB BLOOD ORDERABLE S Final Result [facility] [address] [place] [address] * TSH (04/13/2024 4:00 PM OCCUPATIONAL HEALTH PHYSICIAN) Pathologist [facility] Thyroid Stimulating Hormone 0.70 0.30 - 4.20 mcIUnit/mL Blood 04/13/2024 4:00 PM OCCUPATIONAL HEALTH PHYSICIAN 04/13/2024 9:36 PM OCCUPATIONAL HEALTH PHYSICIAN us Cindy Pelletier MD LAB BLOOD ORDERABLE S Final Result Performing Organization Address [facility] Co de Phone Number [facility] [address] [place] [address] * T4, free (04/13/2024 4:00 PM OCCUPATIONAL HEALTH PHYSICIAN) Pathologist [facility] Free T4 1.53 0.90 - 1.70 ng/dL Blood 04/13/2024 4:00 PM OCCUPATIONAL HEALTH PHYSICIAN 04/13/2024 9:36 PM OCCUPATIONAL HEALTH PHYSICIAN us Cindy Pelletier MD LAB BLOOD ORDERABLE S Final Result Performing Organization Address [facility] de Phone Number [facility] [address] [place] [address] * (ABNORMAL) Comprehensive metabolic panel (04/13/2024 4:00 PM OCCUPATIONAL HEALTH PHYSICIAN) Pathologist [facility] Sodium 139 135 - 145 mmol/L Potassium, pl 4.5 3.3 - 4.9 mmol/L [facility] Chloride 102 97 - 110 mmol/L [facility] CO2 26 22 - 32 mmol/L [facility] Anion gap 11 2 - 15 mmol/L [facility] BUN 9 6 - 25 mg/dL [facility] Creatinine 0.53(L) 0.60 - 1.10 mg/dL [facility] Glucose 87 70 - 199 mg/dL [facility] Comment: Interpretive Data Fasting glucose >/= 126 mg/dl is diagnostic for diabetes. ?? Fasting is defined as no caloric intake for at least 8 hours. Fasting glucose between 100 mg/dl to 125 mg/dl is diagnostic of prediabetes. In a patient with classic symptoms of hyperglycemia or hyperglycemic crisis, a random glucose >/= 200 mg/dl is diagnostic for diabetes. In the absence of unequivocal hyperglycemia, results should be confirmed by repeat testing. The classification and Diagnosis of Diabetes Diabetes Care 2021; 46: S19-S40. Current interpretive data was last revised 2022. Calcium 9.8 8.5 - 10.3 mg/dL [facility] Bilirubin, total 0.4 0.1 - 1.2 mg/dL [facility] Protein, pl 7.6 6.5 - 8.5 g/dL [facility] Albumin 4.1 3.5 - 5.0 g/dL [facility] Alk phos 100 40 - 130 Units/L [facility] ALT 7 7 - 45 Units/L [facility] AST 21 10 - 45 Units/L [facility] Blood 04/13/2024 4:00 PM OCCUPATIONAL HEALTH PHYSICIAN 04/13/2024 9:36 PM OCCUPATIONAL HEALTH PHYSICIAN Yesica Prabhu Pelletier MD LAB BLOOD ORDERABLE S Final Result [facility] [address] Department [place] [address] from Last 3 Months Insurance [facility] [place] [id number] [facility] [address] [place] [id number] [place]ARE [place] Member Subscriber Plan / Payer (Ef fective 2023-Present) Name:Maribeth Rodriguez Relation to Subscriber:Self Name:Maribeth Rodriguez Payer ID:[id number] (NAIC) Type:MEDICARE RISK OTHER [address] [facility] Care Teams Legal Advisor Relationship Specialty Start Date End Date Cruzito Menon MD PCP - General Family Medicine 06/28/20
--- OUTSIDE RECORDS SUMMARY | 2024-06-16 12:21 | XMS_ITS | Referral Summary ---
Author Organization [facility] Address [address] [place] [address] Care Team Providers Care Air Tool Operator Name Role Phone Unavailable Primary Care Provider Unavailabl e Source Comments [facility],non-owned Affiliates and Associated Physician Practices is amultiple site organization consisting of ambulatory clinics and hospital sitesin [place], [place], [place] and [place]. This disclosure is being madepursuant to the Care Everywhere program and may not contain all information available regarding this patient. Last updated 18.[facility] Social History Tobacco Use Types Packs/Day Years Used Date Smoking Tobacco: Never Assessed Sex and Gender Information Value Date Recorded Sex Assigned at Not on file Gender Identity Not on file Sexual Orientation Not on file Plan of Treatment Not on file
--- OUTSIDE RECORDS SUMMARY | 2024-06-16 12:21 | XMS_ITS | Patient Health Summary ---
Author Organization [facility] Address [address] [place] [address] Care Team Providers Care Shrimp Pond Laborer Name Role Phone Unavailable Primary Care Provider Unavailabl e Note from [facility],non-owned Affiliates and Associated Physician Practices is amultiple site organization consisting of ambulatory clinics and hospital sitesin [place], [place], [place] and [place]. This disclosure is being madepursuant to the Care Everywhere program and may not contain all information available regarding this patient. Last updated 18.[facility] Social History Tobacco Use Types Packs/Day Years Used Date Smoking Tobacco: Never Assessed Sex and Gender Information Value Date Recorded Sex Assigned at Not on file Gender Identity Not on file Sexual Orientation Not on file Procedures * PATHOLOGY TISSUE(Performed 06/10/2020) Performed for Illness, unspecified Results * PATHOLOGY TISSUE (06/10/2020 1:59 PM OPHTHALMIC NURSE) Case Report Surgical Pathology Report ? Case: [id number] ? Authorizing Provider: ??Dayo Santillan MD ?Collected: ? 06/10/2020 01:59 PM ? Ordering Location: ? [facility] ? Received: ?06/14/2020 08:08 AM ? Pathologist: ? Nga Mason Mai, ? Specimen: ?Lymph Node Biopsy ? 06/15/2020 9:[address] [facility] Final Diagnosis Lymph node, left supraclavicular, ultrasound-guided core biopsy: - Classic Hodgkin lymphoma. - See description. 06/15/2020 9:[address] [facility] Microscopic Description and Comment Review of the left supraclavicular lymph node core biopsy specimen reveals sections of lymphoid tissue interspersed between dense sclerotic collagen bands. There is a scattered population of large Hodgkin/Kyrie-Sternber g-like (HRS-like) cells, some having large, irregular nuclei, and some having very prominent nucleoli. Abundant background eosinophils are noted. Rare lacunar cells are identified. Immunohistochemical stains are performed on block A1 in the [facility] Department of Pathology, with appropriately reactive controls, and demonstrate the following: PAX-5 is weakly expressed in the large, atypical cells. CD30 is expressed by the atypical cells. CD15 is expressed in a subset of the atypical cells. CD3 and CD5 highlight dispersed interstitial T-cells. The large, atypical cells are negative for CD20. These findings are most consistent with classical Hodgkin lymphoma, and as sampled in this needle core biopsy, favor nodular sclerosis subtype. Correlation with clinical findings and relevant cytogenetic/molecular testing is required. VH/OEM 06/15/2020 9:[address] [facility] Clinical History The patient is a 64 year-old woman with lymphadenopathy. 06/15/2020 9:[address] [facility] Materials Received Received are 2 slide(s) and 1 block (A1) labeled [id number] along with a copy of the outside pathology report. [place] [address]. All original materials are returned to the referring institution, along with a copy of our final report. 06/15/2020 9:[address] [facility] Disclaimer The performance characteristics of all immunohistochemical and indirect immunofluorescence stains (if any) cited in this report were determined by the Histopathology Laboratory of [facility]. Some of these tests were developed by our own laboratory and have not been cleared or approved by the US Food and Drug Administration. The FDA does not require this test to go through premarket FDA review. These tests are used for clinical purposes. They should not be regarded as investigational or for research. This laboratory is certified under the Clinical Laboratory Improvement Amendments (CLIA) as qualified to perform high complexity clinical laboratory testing. This case has been personally reviewed and interpreted by the attending (teaching) pathologist. 06/15/2020 9:[address] [facility] Embedded Images 06/15/2020 9:[address] [facility] Pathology/Cytolo gy BIOPSY OF LYMPH NODE / Unknown 06/10/2020 1:59 PM OPHTHALMIC NURSE 06/14/2020 8:08 AM OPHTHALMIC NURSE Dayo Santillan MD LAB - PATHOLOGY/CYTO LOGY ORDERABLES [facility] [address] [place] [address], [facility] [phone]
--- OUTSIDE RECORDS SUMMARY | 2024-06-16 12:21 | XMS_ITS | Encounter Summary ---
Author Organization [facility] Address [address] [place] [address] Care Team Providers Care Floor Helper Name Role Phone Unavailable Primary Care Provider Unavailabl e Encounter Details Date Type Department Care Team (Late st Contact Info) Description 06/14/2020 Lab Requisition [facility] [address] [place] [address] Dayo Santillan MD [address] [place], [place] [id number] Illness, unspecified Social History Tobacco Use Types Packs/Day Years Used Date Smoking Tobacco: Never Assessed Sex and Gender Information Value Date Recorded Sex Assigned at Not on file Gender Identity Not on file Sexual Orientation Not on file documented as of this encounter Plan of Treatment Not on file documented as of this encounter Procedures Procedure Name Priority Date/Time Associated Diagnosis Comments PATHOLOGY TISSUE Routine 06/10/2020 1:59 PM SALES COMPENSATION ANALYST Illness, unspecified documented in this encounter Results * PATHOLOGY TISSUE (06/10/2020 1:59 PM SALES COMPENSATION ANALYST) Case Report Surgical Pathology Report ? Case: [id number] ? Authorizing Provider: ??Dayo Santillan MD ?Collected: ? 06/10/2020 01:59 PM ? Ordering Location: ? [facility] ? Received: ?06/14/2020 08:08 AM ? Pathologist: ? Nga Mason Mai, DO ? Specimen: ?Lymph Node Biopsy ? 06/15/2020 9:37 AM [facility] Final Diagnosis Lymph node, left supraclavicular, ultrasound-guided core biopsy: - Classic Hodgkin lymphoma. - See description. 06/15/2020 9:37 AM [facility] Microscopic Description and Comment Review [...] are performed on block A1 in the [facility] Department of Pathology, with appropriately reactive controls, [...] findings and relevant cytogenetic/molecular testing is required. BLADIMIR/OEM 06/15/2020 9:37 AM [facility] Clinical History The patient is a 64 year-old woman with lymphadenopathy. 06/15/2020 9:37 AM [facility] Materials Received Received are 2 slide(s) and 1 block (A1) labeled [id number] along with a copy of the outside pathology report. The materials originate [place] [address] [place] [address]. All original materials are returned to the referring institution, along with a copy of our final report. 06/15/2020 9:37 AM [facility] Disclaimer The performance characteristics of all immunohistochemical and indirect immunofluorescence stains (if any) cited in this report were determined by the Histopathology Laboratory of [facility]. Some of these tests were developed by [...] the attending (teaching) pathologist. 06/15/2020 9:37 AM [facility] Embedded Images 06/15/2020 9:37 AM [facility] Pathology/Cytolo gy BIOPSY OF LYMPH NODE / Unknown 06/10/2020 1:59 PM SALES COMPENSATION ANALYST 06/14/2020 8:08 AM SALES COMPENSATION ANALYST Dayo Santillan MD LAB - PATHOLOGY/CYTO LOGY ORDERABLES Performing Organization Address City/State/ZIP Co il Phone Number [facility] [address] [phone] documented in this encounter Visit Diagnoses Diagnosis Illness, unspecified documented in this encounter
--- OUTSIDE RECORDS SUMMARY | 2024-06-16 12:21 | XMS_ITS | Clinical Summary ---
Author Organization [facility] Address [address] [place] [address]. [place] [address] [place] [address] Care Team Providers Care Metal Polisher And Buffer Apprentice Name Role Phone Cruzito Menon MD Primary Care Provider [phone] Allergies Active Allergy Reactions Criticality Noted Date Comments Penicillins Hives 06/28/2020 Medications atorvastatin 40 MG tablet Take 40 mg by mouth nightly at bedtime. Active levothyroxine 112 MCG tablet Take 112 mcg by mouth every morning. Active buPROPion SR (WELLBUTRIN SR) 150 MG 12 hr tablet Take 150 mg by mouth 2 (two) times daily. Active escitalopram (LEXAPRO) 10 MG tablet Take 10 mg by mouth daily. Active Ergocalciferol (VITAMIN D OR) Take 5,000 Units by mouth weekly. Active Active Problems Problem Noted Date Diagnosed Date Hodgkin's lymphoma ([facility]) Social History Tobacco Use Types Packs/Day Years Used Date Smoking Tobacco: Every Day Cigarettes Smokeless Tobacco: Never Comments:smokes 3 cigarettes per day Alcohol Use Standard Drinks/Week Comments Not Currently 0 (1 standard drink = 0.6 oz pur e alcohol) Comments Unknown Sex and Gender Information Value Date Recorded Sex Assigned at Not on file Legal Sex Female 8:27 AM SHOWROOM SALES ASSISTANT Gender Identity Not on file Sexual Orientation Not on file Last Filed Vital Signs Vital Sign Reading Time Taken Comments Blood Pressure 115/71 12/04/2021 2:45 PM CDT Pulse 62 12/04/2021 2:45 PM CDT Temperature 36.7 ??C (98.1 ??F) 12/04/2021 1 1:00 AM CDT Respiratory Rate 18 12/04/2021 2:45 PM CDT Oxygen Saturation 99% 12/04/2021 2:45 PM CDT Inhaled Oxygen Concentration - - Weight 63.4 kg (139 lb 12.4 oz) 022 11:00 AM CDT Height 154.9 cm (5' 1 ) 12/04/2021 11:0 0 AM CDT Body Mass Index 26.41 12/04/2021 11:00 AM CDT Plan of Treatment Health Maintenance Due Date Last Done Comments Colorectal Cancer Screening Colonoscopy (10 Years) 1956 Pneumococcal Vaccine: 65+ Years (1 of 2 - PCV) 1962 Hepatitis C 1974 DTaP, Tdap and Td Vaccines (1 - Tdap) 12/17/1975 Zoster Vaccines (1 of 2) 12/17/1975 Mammogram Screening 1996 RSV Immunization or 60+ Years (1 - Risk 60-74 years 1-dose series) 2016 Annual Medicare Wellness Visit 2021 Dexa Scan (General) 2021 COVID-19 Vaccine ( season) 2024 10/30/2021, 02/16/2021, 08/13/2020, Additional history exists Influenza Adult (#1) 2024 02/16/2021, 02/09/2020, 02/25/2019, Additional history exists Meningococcal B Vaccine Aged Out No l onger eligible based on patient's age to complete this topic Meningococcal Vaccine Aged Out No colten renny eligible based on patient's age to complete this topic RSV Immunizations Under 20 Months Aged Out No longer eligible based on patient's age to complete this topic Insurance [facility] MEDICARE Care Teams Metal Polisher And Buffer Apprentice Relationship Specialty Start Date End Date Cruzito Menon MD PCP - General FAMILY PRACTICE 12/04/21
--- OUTSIDE RECORDS SUMMARY | 2024-06-16 12:21 | XMS_ITS | Clinical Summary ---
Author Organization [facility] Address [address] [place] [address] Care Team Providers Care Electronic Warfare Linguist Name Role Phone Unavailable Primary Care Provider Unavailabl e Source Comments [facility],non-owned Affiliates and Associated Physician Practices is amultiple site organization consisting of ambulatory clinics and hospital sitesin [place], [place], [place] and [place]. This disclosure is being madepursuant to the Care Everywhere program and may not contain all information available regarding this patient. Last updated 18.[facility] [employer] Social History Tobacco Use Types Packs/Day Years Used Date Smoking Tobacco: Never Assessed Sex and Gender Information Value Date Recorded Sex Assigned at Not on file Gender Identity Not on file Sexual Orientation Not on file Plan of Treatment Health Maintenance Due Date Last Done Comments BONE DENSITY TESTING 1955 COLOGUARD (AGES 45-75) - COL ON CA SCREENING 1955 COLON MONITORING 1955 COLONOSCOPY - COLON CA SCREENING 1956 CT COLONOGRAPHY - COLON CA SCREENING 1955 Colorectal Cancer Screening 1955 FIT - COLON CA SCREENING 1956 FLEX SIG - COLON CA SCREENING 1956 LIPID TESTING 1955 MAMMOGRAM 1955 HEPATITIS C SCREENING 12/12/1974 DTAP/TDAP/TD VACCINES (1 - Tdap) 12/17/1975 PNEUMOCOCCAL VACCINE 50+ (1 of 1 - PCV) 2006 ZOSTER VACCINE (1 of 2) 2006 COVID-19 VACCINE ( - 2023-2 5 season) 2024 INFLUENZA VACCINE (#1) 2024 DEPRESSION SCREENING 05/20/2024 Respiratory Syncytial Virus (RSV) Vaccine Pt: or over 60 yrs (1 - 1-dose 75+ series) 12/17/2031 HEPATITIS B VACCINE Aged Out No longe r eligible based on patient's age to complete this topic HIB VACCINE Aged Out No longer eligi ble based on patient's age to complete this topic HPV VACCINE Aged Out No longer eligi ble based on patient's age to complete this topic MENINGOCOCCAL (Group B) VACCINE Aged Out No longer eligible based on patient's age to complete this topic MENINGOCOCCAL VACCINE Aged Out No colten renny eligible based on patient's age to complete this topic
--- OUTSIDE RECORDS SUMMARY | 2024-06-16 12:21 | XMS_ITS | Clinical Summary ---
Author Organization [facility] Care Team Providers Care Accounts Receivable Clerk Name Role Phone Cruzito Menon MD Primary Care Provider Allergies Active Allergy Reactions Criticality Noted Date [...] 04/02/2022 Assessment & Plan (04/14/2024 3:42 PM [employer] [facility]): Chronic, unknown status Patient currently on Synthroid Plan to repeat thyroid function test and further plans based on it Assessment & Plan (04/01/2023 1:10 PM [employer]): Chronic, uncontrolled Patient on Synthroid 100 mcg oral daily Plan to repeat thyroid function test today and further plans based on it Assessment & Plan (04/02/2022 3:05 PM [employer] [facility]): Pt currently on Synthroid 112 mcg oral daily check TSH and further plans based on it 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 current pathological fracture 04/02/2022 Assessment & Plan (04/14/2024 3:41 PM [employer]): Chronic, unknown status Status post Reclast infusion 04/06/2022, 04/08/2023 Tolerated well Patient is due for another Reclast after Labs today Fall precautions Continue current vitamin-D and calcium supplements Scheduled for bone density scan soon Follow up in one year Assessment & Plan (04/01/2023 1:11 PM [employer] [facility]): Status post Reclast infusion 04/06/2022 Tolerated well Patient is due for another Reclast after 04/06/2023 Labs today Fall precautions Continue current vitamin-D and calcium supplements Plan to repeat bone density scan next year Follow up in one year Assessment & Plan (04/02/2022 3:04 PM [employer]): Severe worsening Osteoporosis intolerant to oral fosamax Start Reclast infusion ( will schedule this at [facility] infusion center ) Advise to continue current Vitamin D and calcium supplementation Labs today Fall precautions Cut back on smoking discuss with dentist regarding Reclast infusion Follow up in one year Vitamin D deficiency 04/02/2022 Assessment & Plan (04/14/2024 3:42 PM [employer] [facility]): Check levels today Assessment & Plan (04/01/2023 1:11 PM [employer] [facility]): Continue current vitamin-D replacement therapy Assessment & Plan (04/02/2022 3:06 PM [employer] [facility]): Pt on replacement therapy Check levels today and further plans based on it Tobacco abuse 04/02/2022 Assessment & Plan (04/14/2024 3:42 PM [employer]): Counseled advised patient to cut back and quit smoking Assessment & Plan (04/01/2023 1:11 PM [employer] [facility]): Counseled patient to cut back and quit smoking Assessment & Plan (04/02/2022 3:06 PM [employer] [facility]): Counseled pt to work on cutting back on smoking Dizziness 08/25/2020 Hodgkin's lymphoma 06/16/2020 Lung nodules 06/02/2020 Mediastinal lymphadenopathy 06/02/2020 Encounters Date Type Department Care Team Description 04/15/2024 Telephone [facility] [address] [phone] Cindy Vivas MD 04/14/2024 Telephone [facility] Diabetes and Endocrinology [address] [place] [phone] Cindy Vivas MD Reclast Infusion 04/13/2024 9:00 PM [facility] [facility] [facility] - 04/13/2024 11:59 PM [facility] [facility] Hospital Encounter [address] [address] Acquired hypothyroidism; Age-related osteoporosis without current pathological fracture; Vitamin D deficiency Discharge Disposition: Discharge to home or self care 04/13/2024 1:15 PM [facility] [facility] [facility] Lab [facility] Outpatient Lab at [address] [phone] Vitamin D deficiency (Primary Dx); Hypothyroidism 04/13/2024 1:00 PM [employer] [facility] Office Visit [facility] Diabetes and Endocrinology [address] [place] [phone] Cindy Vivas MD Age-related osteoporosis without current pathological fracture (Primary Dx); Acquired hypothyroidism; Vitamin D deficiency; Tobacco abuse 03/30/2024 Telephone [facility] [address] [address] Cindy Vivas MD infusion from Last 3 Months Immunizations Name Administration Dates Next Due Influenza, Quadrivalent, Comfort l Culture-based MDCK, Preservative Free, Antibiotic Free, Intramuscular 02/25/2019 Influenza, Quadrivalent, Spl it, Preservative Free, Intramuscular 02/09/2020,03/13/2018 Influenza, Trivalent, IM (MDV) 02/16/2021,2013,02/22/2013 Influenza, Trivalent, Preser vative Free, Intramuscular 02/16/2017,02/18/2016,02/26/2015 Surgical History Surgery Date Site/Laterality Comments REPLACEMENT TOTAL KNEE Left SECTION x2 Medical History Medical History Date Comments Hodgkin's lymphoma (HCC) Hearing loss Hyperlipidemia Hypothyroidism Social History Tobacco Use Types Packs/Day Years Used Date Smoking Tobacco: Every Day Tobacco Cessation:Ready to Q uit: Not Asked; Counseling Given: Not Answered Comments Unknown Sex and Gender Information Value Date Recorded Sex Assigned at Not on file Legal Sex Female 2:11 PM [employer] [facility] Gender Identity Not on file Sexual Orientation Not on file Obstetrics History Last Filed Vital Signs Vital Sign Reading Time Taken Comments Blood Pressure 120/82 04/13/2024 1:03 PM [facility] [facility] Pulse 82 04/13/2024 1:03 PM [employer] [facility] Temperature 37.1 ??C (98.8 ??F) 10/19/2021 2:34 PM CD T Respiratory Rate 16 04/13/2024 1:03 PM [employer] [facility] Oxygen Saturation 98% 10/19/2021 2:34 PM CDT Inhaled Oxygen Concentration - - Weight 65.8 kg (145 lb) 04/01/2023 12:57 PM [facility] [facility] Height 152.4 cm (5') 04/13/2024 1:03 PM [employer] [facility] Body Mass Index 30203.37 04/01/2023 12:57 PM [employer] [facility] Plan of Treatment Health Maintenance Due Date Last Done Comments Breast Cancer Screening-Mammogram 1955 Colon Cancer Screening-Colonoscopy 1956 Depression Screening 1956 Fall Risk Assessment 1955 Hepatitis C Screening 1956 Osteoporosis Screening-Bone Density Scan 1955 Pneumococcal vaccine 65+ (1 of 2 - PCV) 1962 DTaP/Tdap/Td Vaccine (1 - Tdap) 12/17/1967 Hepatitis B Screening 1974 Zoster Vaccine (1 of 2) 12/17/1975 Well Visit 65+ 2021 Covid-19 Vaccine (4 - 2023-2 5 season) 2024 02/16/2021, 08/13/2020, 07/21/2020 Influenza Vaccine (#1) 2024 1, 02/09/2020, 02/25/2019, Additional history exists Procedures Procedure Name Priority Date/Time Associated Diagnosis Comments EGFR Routine 04/13/2024 4:00 PM [employer] [facility] Age-related osteoporosis without current pathological fracture VITAMIN D 25 HYDROXY Routine 04/13/2024 4:00 PM [employer] [facility] Vitamin D deficiency COMPREHENSIVE METABOLIC PANEL Routine 04/13/2024 4:00 PM [employer] [facility] Age-related osteoporosis without current pathological fracture T4, FREE Routine 04/13/2024 4:00 PM [employer] [facility] Acquired hypothyroidism TSH Routine 04/13/2024 4:00 PM [employer] [facility] Acquired hypothyroidism from Last 3 Months Results * eGFR (04/13/2024 4:00 PM [employer] [facility]) eGFR >90 >=60 mL/min/1. 73 m2 Comment: [...] last reviewed 2021. Blood 04/13/2024 4:00 PM [facility] [facility] 04/13/2024 9:47 PM [employer] [facility] Cindy Pelletier MD LAB BLOOD ORDERABLE S Final Result Performing Organization Address [facility] Co de Phone Number PHUC YOUSIF [phone] [facility] [place] [address] * Vitamin D 25 hydroxy (04/13/2024 4:00 PM [employer] [facility]) Vitamin D 25-OH 47 30 - 80 ng/mL Blood 04/13/2024 4:00 PM [employer] [facility] 04/13/2024 9:36 PM [employer] Cindy Pelletier MD LAB BLOOD ORDERABLE S Final Result Performing Organization Address [facility] Co de Phone Number PHUC [phone] [facility] [place] [address] * TSH (04/13/2024 4:00 PM [employer] [facility]) Thyroid Stimulating Hormone 0.70 0.30 - 4.20 mcIUnit/mL Blood 04/13/2024 4:00 PM [facility] [facility] 04/13/2024 9:36 PM [employer] [facility] Cindy Pelletier MD LAB BLOOD ORDERABLE S Final Result Performing Organization Address [facility] Co de Phone Number PHUC [phone] [address] [facility] [place] [address] * T4, free (04/13/2024 4:00 PM [employer] [facility]) Free T4 1.53 0.90 - 1.70 ng/dL Blood 04/13/2024 4:00 PM [employer] [facility] 04/13/2024 9:36 PM [employer] [facility] us Cindy Pelletier MD LAB BLOOD [place] [address] Department [place] [address] * (ABNORMAL) Comprehensive metabolic panel (04/13/2024 4:00 PM [facility] [facility]) Sodium 139 135 - 145 mmol/L Potassium, pl 4.5 3.3 - 4.9 mmol/L [facility] Chloride 102 97 - 110 mmol/L [facility] CO2 26 22 - 32 mmol/L [facility] Anion gap 11 2 - 15 mmol/L [facility] BUN 9 6 - 25 mg/dL [facility] Creatinine 0.53(L) 0.60 - 1.10 mg/dL [facility] Glucose 87 70 - 199 mg/dL [facility] Comment: Interpretive Data Fasting glucose >/= 126 [...] classification and Diagnosis of Diabetes Diabetes Care 202; 46: S19-S40. Current interpretive data was last [...] Units/L [facility] Blood 04/13/2024 4:00 PM [facility] [facility] [facility] 04/13/2024 9:36 PM [employer] [facility] us Cindy Pelletier MD LAB BLOOD [place] [address] [address] Department [place] [address] from Last 3 Months Insurance [employer] [place] [employer] [place] Care Teams Accounts Receivable Clerk Relationship Specialty Start Date End Date Cruzito Menon MD PCP - General Family Medicine 06/28/20
--- OUTSIDE RECORDS SUMMARY | 2024-06-16 12:21 | XMS_ITS | Referral Summary ---
Author Organization [facility] Address [address] [place] [address] Care Team Providers Care Retail Loan Originator Name Role Phone Osmel Ortiz MD Primary Care Provider [phone] Allergies Active Allergy Reactions Criticality Noted Date Comments Penicillins HIVES 11/07/2017 Medications Medication Sig Dispensed Refills Start Date End Date Status ciprofloxacin (CIPRO) 0.3 % ophthalmic solution 1 to 2 drops, four times per day for three to five days 5 mL 08/06/2018 Active Social History Tobacco Use Types Packs/Day Years [...] 08/06/2018 2:13 PM CDT Plan of Treatment Not on file Care Teams Retail Loan Originator Relationship Specialty Start Date End Date Osmel Ortiz MD PCP - General 04/12/18
--- OUTSIDE RECORDS SUMMARY | 2024-06-16 12:21 | XMS_ITS | Encounter Summary ---
Author Organization [facility] Address [address] [place] [address] Phone Care Team Providers Care Phlebotomist Supervisor/Instructor Name Role Phone Cruzito Menon Primary Care Provider Matt Gan MD Unavailable [phone] Cindy Vivas MD Primary Care Provi rome Reason for Visit * Reason Comments Medication Refill Encounter Details Date Type Department Care Team (Late st Contact Info) Description 07/19/2021 Refill [facility] [address] [place] [address] Matt Gan MD [address] [address] Medication Refill Social History Tobacco Use Types Packs/Day Years Used Date Smoking Tobacco: Every Day Cigarettes Smokeless Tobacco: Never Alcohol Use Standard Drinks/Week Comments Yes 2 (1 standard drink = 0.6 oz pur e alcohol) PHQ-2 Answer Date Recorded Total Score - Questions 1-9 0 04/19 Comments No Sex and Gender Information Value Date Recorded Sex Assigned at Not on file Legal Sex Female 8:50 AM NURSING PROGRAM DIRECTOR Gender Identity Not on file Sexual Orientation Not on file documented as of this encounter Miscellaneous Notes * Telephone Encounter - Shalini Garzon LPN - 07/19/2021 8:11 AM NURSING PROGRAM DIRECTOR Please refill if appropriate. ING PROGRAM DIRECTOR documented in this encounter Plan of Treatment Upcoming Encounters Date Type Department Care Team (Late st Contact Info) Description 08/07/2024 10:15 AM CDT Office Visit [facility] [address] [place] [phone] Matt Gan MD [address] [facility] [address] [place] [address] documented as of this encounter Visit Diagnoses Not on filedocumented in this encounter Additional Health Concerns Assessment Noted Time PHQ-9 Depression Total Score: 0 03/02/20 10:04 AM CDT documented as of this encounter Care Teams Phlebotomist Supervisor/Instructor Relationship Specialty Start Date End Date Cruzito Menon [address] [place] [address] PCP - General Family Medicine 05/26/20 02/06/[address] [place] [address] [facility] [address], [place] [address] PCP - General Endocrinology 05/18/24 Matt Gan MD [address] [place] [phone] Consulting Physician Oncology 06/02/20 documented as of this encounter
== END 2024-06-16 11:12 | disposition home or self-care (01) ==
LOC: ANHIMG 11:12
PROVIDERS: PCP Emergency Medicine; Visit Provider Internal Medicine Endocrinology, Diabetes & Metabolism
DX: M81.0 Age-related osteoporosis without current pathological fracture (principal); M85.851 Other specified disorders of bone density and structure, right thigh
CPT/HCPCS: 77080

== ENCOUNTER 2024-08-28 13:29 | Outpatient (CLI) | payer MEDICARE, SELFPAY ==
--- NOTE | ~2024-08-28 | MM_ITS ---
EXAMINATION: MM screening [facility] BI w demetrius HISTORY: Screening TECHNIQUE: Craniocaudal and mediolateral oblique 3-D tomosynthesis images were obtained and synthetic 2-D images were generated. CAD analysis was submitted and interpreted. COMPARISON: Comparison to multiple prior studies sequentially, with oldest reviewed study dated 03/20. BREAST PARENCHYMAL COMPOSITION: Not dense: There are scattered areas of fibroglandular density. FINDINGS: There is no evidence of suspicious mass, calcification, or architectural distortion to sugg est malignancy in either breast. There has been no suspicious interval change. IMPRESSION: 1. No mammographic evidence of malignancy. 2. Recommend routine screening mammography in one year. BI-RADS Category 1: Negative Reviewed, dictated and finalized at location A.
== END 2024-08-28 13:30 | disposition home or self-care (01) ==
LOC: MICIMG 13:30
PROVIDERS: PCP Emergency Medicine; Visit Provider Physician Assistant
DX: Z12.31 Encounter for screening mammogram for malignant neoplasm of breast (principal)
CPT/HCPCS: 77063; 77067

== ENCOUNTER 2025-02-22 15:33 | Outpatient (CLI) | payer MEDICARE, SELFPAY ==
--- NOTE | 2025-02-22 15:54 | ECG_ITS ---
Test Date: 2025-02-22 16:06:20 Measurements Intervals [place] Rate: 90 P: 59 MD: 117 QRS: 76 QRSD: 92 T: 31 QT: 356 QTc: 436 Interpretive Statements SINUS RHYTHM WITH SHORT MD INTERVAL POSSIBLE LEFT ATRIAL ENLARGEMENT BORDERLINE ECG No previous ECG available for comparison Electronically Signed On 02-22-2025 16:17:29 CDT by Keenan Xie D.O.
[2025-02-22 15:59] LABS: Hematocrit 45.5 % (37.0-47.0); Hemoglobin 14.9 g/dL (12.0-15.0); Immature Granulocyte Percent A 0.4 % (0-0.5); Lymphocytes Absolute Auto 2.49 K/mm3 (0.9-3.2); Mean Corpuscular HGB Conc 32.7 g/dl (32-36); Mean Corpuscular Hemoglobin 29.9 pg (26-34); Mean Corpuscular Volume 91.4 fl (80-100); Nucleated Red Blood Cells Absolute Auto 0.000 K/mm3 (0.0-0.012); Nucleated Red Blood Cells Perc 0.0 % (0.0-0.2); Platelet Count Result 274 k/mm3 (150-375); Red Blood Count 4.98 M/mm3 (4.2-5.4); White Blood Count 8.5 K/mm3 (4.5-10.0)
[2025-02-22 16:01] LABS: Add Urine Microscopic? YES; Appearance Urine Clear (Clear); Glucose Urine UA Negative (Negative); Leukocyte Esterase Ur Negative LEU/UL (Negative); Nitrate Urine Negative (Negative); Non Pathogenic Casts 0-2; Specific Grav Ur 1.022 (1.001-1.035)
--- OUTSIDE RECORDS SUMMARY | 2025-02-22 16:03 | XMS_ITS | Clinical Summary ---
Author Organization [facility] Address [address], [address] [place] [address] Phone Care Team Providers Care Snuff Drier Name Role Phone Matt Gan MD Unavailable [phone] Cindy Vivas MD Primary Care Provi rome Allergies Active Allergy Reactions Criticality Noted Date Comments Morphine Other (see Comments) 08/12/2014 Penicillin V Hives Medium 06/02/2020 Medications atorvastatin (LIPITOR) 40 MG Tablet 0 Active Vitamin D, Cholecalciferol , 10 MCG (400 UNIT) Capsule Take 5,000 Units by mouth. Active hydroxychloroqu ine (PLAQUENIL) 200 MG Tablet 2 Active venlafaxine (EFFEXOR-XR) 150 MG CAPSULE SR 24 HR 2 Active celecoxib (CeleBREX) 100 MG Capsule Take 100 mg by mouth 2 times daily. 3 Active Synthroid 100 MCG Tablet 4 Active meloxicam (MOBIC) 15 MG Tablet TAKE 1 TABLET BY MOUTH DAILY WITH MEALS 4 Active diclofenac (VOLTAREN) 75 MG Tablet Delayed Response Take 75 mg by mouth 2 times daily. 5 Active ergocalciferol (VITAMIN D) 71757 UNIT Capsule Once every other week 1 02/16/20 25 Discontinu ed(Med List Clean Up) HYDROcodone-jered taminophen (NORCO) 5-325 MG Tablet TAKE 1 TABLET BY MOUTH EVERY 8-12 HOURS NEEDED 3 02/16/20 25 Discontinu ed(Med List Clean Up) Active Problems Problem Noted Date Diagnosed Date Dizziness 08/25/2020 Hodgkin lymphoma, unspecified, intrathoracic lym ph nodes 06/16/2020 Lung nodules 06/02/2020 Mediastinal lymphadenopathy 06/02/2020 Hypothyroidism 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 current pathological fracture Encounters Date Type Department Care Team Description 02/15/2025 1:15 PM CDT Office Visit [facility] [address] [address] Matt Gan MD 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) 02/15/2025 12:30 PM CDT Ancillary Procedure [facility] [address] [address] 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); Hodgkin lymphoma of intrathoracic lymph nodes, unspecified Hodgkin lymphoma type (HCC); Lymphadenopathy 02/15/2025 12:00 PM CDT Ancillary Procedure [facility] [address] [address] 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); Hodgkin lymphoma of intrathoracic lymph nodes, unspecified Hodgkin lymphoma type (HCC); Lymphadenopathy 02/15/2025 11:00 AM CDT Lab [facility] [address] [address] Lab, [facility] 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); Lung nodules; Mediastinal lymphadenopathy 02/15/2025 Travel 02/15/2025 Telephone [facility] [address] [address] Matt Gan MD 02/09/2025 Telephone [facility] [address] [address] Matt Gan MD 02/08/2025 Telephone [facility] [address], [facility] [address] [place] [address] Matt Gan MD from Last 3 Months Immunizations Immunization Administration Dates Next Due Influenza Vaccine 02/16/2017,02/18/2016,02/27/20 15 Influenza Vaccine, MDCK,quad rivalent, pres free 02/25/2019 Influenza Vaccine, Quadrivalent, PF 02/09/2020,1 Influenza, Seasonal, Injectable, Undefined 02/01,02/22/2013 Family History Medical History Relation Name Comments Ovarian Cancer Mother Relation Name Status Comments Mother Social History Tobacco Use Types Packs/Day Years Used Date Smoking Tobacco: Some Days Cigarettes Smokeless Tobacco: Never Tobacco Cessation:Ready to Q uit: Yes; Counseling Given: Yes Alcohol Use Standard Drinks/Week Comments Yes 2 (1 standard drink = 0.6 oz pur e alcohol) PHQ-2 Answer Date Recorded Total Score - Questions 1-9 0 10/18 Comments No Sex and Gender Information Value Date Recorded Sex Assigned at Not on file Legal 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 Gender Identity Not on file Sexual Orientation Not on file Last Filed Vital Signs Vital Sign Reading Time Taken Comments Blood Pressure 130/84 02/15/2025 1:48 PM CDT Pulse 65 02/15/2025 1:48 PM CDT Temperature 36.5 C (97.7 F) 02/15/2025 1:48 PM CDT Respiratory Rate 18 02/15/2025 1:48 PM CDT Oxygen Saturation 98% 02/15/2025 1:48 PM CDT Inhaled Oxygen Concentration - - Weight 62.7 kg (138 lb 4.8 oz) 02/15/2025 1:48 P M CDT Height 152.4 cm (5') 02/15/2025 1:48 PM CDT Body Mass Index 27.01 02/15/2025 1:48 PM CDT Plan of Treatment Upcoming Encounters Date Type Department Care Team (Late st Contact Info) Description 07/12/2025 1:15 PM LIBRARY ACQUISITIONS TECHNICIAN Office Visit [facility] [address] [address] Matt Gan MD [address] [place] [address] [place] [id number] Health Maintenance Due Date Last Done Comments DEXA Bone Density 1955 Hepatitis C Virus (HCV) Screening 1955 Mammogram 1955 TdaP Immunization 1955 Zoster Immunization (1 of 2) 12/17/1975 Cologuard 2001 Colonoscopy 2001 Colorectal Cancer Screening 2001 Immunochemical Fecal Occult Blood 2001 Medicare Initial AWV [id number] 11/17/2022 Influenza Immunization (#1) 01/18/202502/18, 02/19/2023, 02/14/2022, Additional history exists SARS-COV-2 Immunization ( season) 2025 03/12/2024, 05/03/2022, 10/30/2021, Additional history exists Pneumococcal Immunization (50+ years) Completed 02/14/2022 Pneumococcal Immunization Combined Discontinued 02/14/2022 Respiratory Syncytial Virus (RSV) Immunization (Adult) Completed 02/19/2023 Hepatitis B Immunization Aged Out No longer eligible based on patient's age to complete this topic Human Papillomavirus (HPV) Immunization Aged Out No longer eligible based on patient's age to complete this topic Meningococcal Immunization (ACWY) Aged Out No longer eligible based on patient's age to complete this topic Rotavirus Immunization Aged Out No lo nger eligible based on patient's age to complete this topic Procedures Procedure Name Priority Date/Time Associated Diagnosis Comments CT SOFT TISSUE NECK W CONTRAST Routine 02/15/2025 12:06 PM CDT 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) Hodgkin lymphoma of intrathoracic lymph nodes, unspecified Hodgkin lymphoma type (HCC) Lymphadenopathy CT CHEST ABDOMEN AND PELVIS W CONTRAST Routine 02/15/2025 12:06 PM CDT 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) Hodgkin lymphoma of intrathoracic lymph nodes, unspecified Hodgkin lymphoma type (HCC) Lymphadenopathy CBC WITH AUTO DIFF OH Routine 02/15/2025 11:02 AM CDT CMP (COMPREHENSIVE METABOLIC PANEL) STAT 02/15/2025 11:02 AM CDT 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) Lung nodules Mediastinal lymphadenopathy LACTATE DEHYDROGENASE (LD) STAT 02/15/2025 11:02 AM CDT 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 TECHNIQUE: Contiguous axial views are obtained through the soft tissues of the neck following the uneventful intravenous administration of contrast. Thereafter multi planar reconstruction images are made. A dose lowering technique was used for this procedure, which may include, but is not limited to, dose reduction technique(s), automated exposure control techniques, use of iterative reconstruction techniques, and ALARA (as low as reasonably achievable) or ALARA/IMAGE Gently techniques. FINDINGS: No nuchal mass or significant nuchal adenopathy can be seen. The previously demonstrated dominant left supraclavicular lymph node demonstrated on CT nuclear medicine PET examination of June 07, 2020 is no longer seen. Subcentimeter lymph nodes in the neck can be seen bilaterally which may be reactive or inflammatory, for example. These are too small to characterize. No infiltration of superficial or deep fat planes of the neck can be seen. No abnormal enhancement or abscess formation in the neck can be seen. No supraglottic, glottic, subglottic, paraglottic mass can be appreciated. The epiglottis aryepiglottic folds appear normal. There is opacification of the few inferior right mastoid air cells. There is a small retention cysts inferiorly in right maxillary sinus. The ostiomeatal complex regions appear patent. No preseptal, postseptal, extraconal, or extraconal abnormality can be seen. Degenerative changes of the cervical spine and visualized upper thoracic spine can be appreciated. A dextroscoliosis of the cervicothoracic articulation region can be seen. Marked degenerative changes about the visualized left glenohumeral joint can be seen, which is seen in part on this CT evaluation dedicated to the soft tissues of the neck. Dedicated CT evaluation of the chest, abdomen, pelvis has been performed on the same date and is dictated under separate cover. IMPRESSION No nuchal mass or significant nuchal adenopathy seen. Electronically signed by: ALFREDA MALDONADO MD Date of Signature: 02/15/2025 12:16:21 Procedure Note Alfreda Maldonado MD - 02/15/2025 EXAMINATION: CT SOFT TISSUE NECK W CONTRAST 02/15/2025 INDICATIONS: Nodular sclerosis Hodgkin lymphoma, intrathoracic lymph nodes nodularsclerosing Hodgkin's lymphoma with lung involvement, mediastinaladenopathy, pulmonary nodules COMPARISON: This examination is compared to CT nuclear medicine PET examination datedJune 07, 2020. TECHNIQUE: Contiguous axial views are obtained through the soft tissues of the neckfollowing the uneventful intravenous administration of contrast. Thereafter multi planar reconstruction images are made. A dose lowering technique was used for this procedure, which may include,but is not limited to, dose reduction technique(s), automated exposurecontrol techniques, use of iterative reconstruction techniques, and ALARA(as low as reasonably achievable) or ALARA/IMAGE Gently techniques. FINDINGS: No nuchal mass or significant nuchal adenopathy can be seen. Thepreviously demonstrated dominant left supraclavicular lymph nodedemonstrated on CT nuclear medicine PET examination of June 07, 2020 isno longer seen. Subcentimeter lymph nodes in the neck can be seen bilaterally which may bereactive or inflammatory, for example. These are too small tocharacterize. No infiltration of superficial or deep fat planes of the neck can beseen. No abnormal enhancement or abscess formation in the neck can be seen. No supraglottic, glottic, subglottic, paraglottic mass can beappreciated. The epiglottis aryepiglottic folds appear normal. There is opacification of the few inferior right mastoid air cells. There is a small retention cysts inferiorly in right maxillary sinus. The ostiomeatal complex regions appear patent. No preseptal, postseptal, extraconal, or extraconal abnormality can beseen. Degenerative changes of the cervical spine and visualized upper thoracicspine can be appreciated. A dextroscoliosis of the cervicothoracic articulation region can beseen. Marked degenerative changes about the visualized left glenohumeral jointcan be seen, which is seen in part on this CT evaluation dedicated to thesoft tissues of the neck. Dedicated CT evaluation of the chest, abdomen, pelvis has been performedon the same date and is dictated under separate cover. IMPRESSION No nuchal mass or significant nuchal adenopathy seen. Electronically signed by: ALFREDA MALDONADO MD Date of Signature: 02/15/2025 12:16:21 us Matt Gan MD IMG CT ORDERABLES Final Resu lt * CT CHEST ABDOMEN AND PELVIS W CONTRAST (02/15/2025 12:06 PM CDT) Anatomical Region Laterality Modality Chest, Abdomen, Pelvis N/A Computed Tomography Narrative 02/15/2025 12:28 PM CDT EXAMINATION: CT CHEST ABDOMEN AND PELVIS W CONTRAST 02/15/2025 HPI: Hodgkin's lymphoma. COMPARISON: February 07 2024 TECHNIQUE: Helical imaging of the chest abdomen and pelvis obtained with the intravenous administration of contrast. A dose lowering technique was used for this procedure, which may include, but is not limited to, dose reduction techniques, automated exposure controlled techniques, use of iterative reconstruction techniques, and ALARA or ALARA gently techniques. FINDINGS: Chest: Cardiovascular: The heart is normal in size. There is no pericardial effusion. The caliber of the ascending thoracic aorta and main pulmonary artery is normal. Non-opacification of the left vertebral artery suspected, unchanged in comparison. Scattered atherosclerotic vascular calcification, including the coronary arteries. No central pulmonary artery filling defect. The esophagus is unremarkable. The thyroid is not visualized. Lymphatics: No enlarging lymph node identified in the mediastinum, emperatriz, or axilla. Pulmonary: Subpleural reticulation redemonstrated. No new or growing pulmonary nodule. No focal airspace consolidation or pleural effusion. The central airways are patent. Musculoskeletal: No destructive osseous lesion. Vertebral body heights are maintained. Multilevel degenerative disc disease. Abdomen and pelvis: Hepatobiliary: The liver is homogeneous in attenuation. No gallbladder wall thickening or pericholecystic fluid. The main portal vein, superior mesenteric vein, and splenic vein are unremarkable. The spleen and pancreas are unremarkable. No biliary ductal dilation. : The right and left adrenal gland are normal. The kidneys enhance symmetrically. Bilateral renal cysts noted. Right-sided pelviectasis, unchanged. No hydroureteronephrosis. The bladder is distended without wall thickening. The uterus and adnexa are unremarkable. No free intraperitoneal fluid or air. GI: Diverticulosis coli noted. No bowel wall thickening or dilation. Lymphatics: No enlarging lymph node identified in the abdomen and pelvis. Vascular: Scattered atherosclerotic vascular calcification. Ectasia of the infrarenal abdominal aorta without overt aneurysm, unchanged in comparison. Musculoskeletal: Advanced degeneration of the hips, vbkr-hoktmcm-rtcg-right. No destructive osseous lesion. Vertebral body heights maintained. IMPRESSION 1. No enlarging lymph node in the chest, abdomen, and pelvis. 2. No new or growing pulmonary nodule. 3. No acute infectious or inflammatory process. Electronically signed by: MARIA DREW MD Date of Signature: 02/15/2025 12:28:56 Procedure Note Maria Drew MD - 02/15/2025 EXAMINATION: CT CHEST ABDOMEN AND PELVIS W CONTRAST 02/15/2025 HPI: Hodgkin's lymphoma. COMPARISON: February 07 2024 TECHNIQUE: Helical imaging of the chest abdomen and pelvis obtained with theintravenous administration of contrast. A dose lowering technique was used for this procedure, which mayinclude, but is not limited to, dose reduction techniques, automatedexposure controlled techniques, use of iterative reconstructiontechniques, and ALARA or ALARA gently techniques. FINDINGS: Chest: Cardiovascular: The heart is normal in size. There is no pericardialeffusion. The caliber of the ascending thoracic aorta and main pulmonaryartery is normal. Non-opacification of the left vertebral arterysuspected, unchanged in comparison. Scattered atherosclerotic vascularcalcification, including the coronary arteries. No central pulmonaryartery filling defect. The esophagus is unremarkable. The thyroid is not visualized. Lymphatics: No enlarging lymph node identified in the mediastinum, emperatriz,or axilla. Pulmonary: Subpleural reticulation redemonstrated. No new or growingpulmonary nodule. No focal airspace consolidation or pleural effusion.The central airways are patent. Musculoskeletal: No destructive osseous lesion. Vertebral body heightsare maintained. Multilevel degenerative disc disease. Abdomen and pelvis: Hepatobiliary: The liver is homogeneous in attenuation. No gallbladderwall thickening or pericholecystic fluid. The main portal vein, superiormesenteric vein, and splenic vein are unremarkable. The spleen andpancreas are unremarkable. No biliary ductal dilation. : The right and left adrenal gland are normal. The kidneys enhancesymmetrically. Bilateral renal cysts noted. Right-sided pelviectasis,unchanged. No hydroureteronephrosis. The bladder is distended withoutwall thickening. The uterus and adnexa are unremarkable. No free intraperitoneal fluid or air. GI: Diverticulosis coli noted. No bowel wall thickening or dilation. Lymphatics: No enlarging lymph node identified in the abdomen andpelvis. Vascular: Scattered atherosclerotic vascular calcification. Ectasia ofthe infrarenal abdominal aorta without overt aneurysm, unchanged incomparison. Musculoskeletal: Advanced degeneration of the hips, gbbv-xvyocxf-limb-right. Nodestructive osseous lesion. Vertebral body heights maintained. IMPRESSION 1. No enlarging lymph node in the chest, abdomen, and pelvis. 2. No new or growing pulmonary nodule. 3. No acute infectious or inflammatory process. Electronically signed by: MARIA DREW MD Date of Signature: 02/15/2025 12:28:56 us Matt Gan MD IMG CT ORDERABLES Final Resu lt * (ABNORMAL) CBC WITH AUTO DIFF OH (02/15/2025 11:02 AM CDT) WBC 6.1 4.0 - 10.0 10*3/uL [facility] HGB 14.5 11.2 - 15.7 g/dL [facility] HCT 44.2 34.1 - 44.9 % [facility] PLT 221 163 - 369 10*3/uL [facility] MPV 9.9 9.4 - 12.4 fL [facility] RBC 4.79 3.93 - 5.22 10*6/uL [facility] MCV 92 79 - 95 fL [facility] MCH 30.3 25.6 - 32.2 pg [facility] MCHC 32.8 32.2 - 36.5 g/dL [facility] RDW 12.5 11.6 - 14.4 % [facility] Neutrophils % 49.6 36.0 - 66.0 % [facility] Lymphocytes % 33.8 19.0 - 40.0 % [facility] Monocytes % 7.7 4.1 - 12.1 % [facility] Eosinophils % 7.7(H) 0.0 - 3.5 % [facility] Basophils % 1.0 0.0 - 1.0 % [facility] Absolute Neutrophils 3.0 1.4 - 6.6 10*3/uL [facility] Absolute Lymphocytes 2.1 0.8 - 4.0 10*3/uL [facility] Absolute Monocytes 0.5 0.2 - 1.2 10*3/uL [facility] Absolute Eosinophils 0.5(H) 0.0 - 0.4 10*3/uL [facility] Absolute Basophils 0.1 0.0 - 0.1 10*3/uL [facility] 02/15/2025 11:0 2 AM CDT us Matt Gan MD LAB SEND OUTS Final Result Performing Organization Address [facility] Co de Phone Number [facility] [address] [place] [address], * LACTATE DEHYDROGENASE (LD) (02/15/2025 11:02 AM CDT) LDH 158 140 - 271 U/L [facility] Blood 02/15/2025 11:0 2 AM CDT Narrative [facility] - 02/15/2025 11:47 AM CDT Release to patient->Immediate us Matt Gan MD CHEMISTRY ORDERABLES Final R esult [facility] [place] [address], * (ABNORMAL) CMP (COMPREHENSIVE METABOLIC PANEL) (02/15/2025 11:02 AM CDT) Glucose 94 70 - 105 mg/dL [facility] Blood Urea Nitrogen 12 7 - 25 mg/dL [facility] Creatinine 0.5(L) 0.6 - 1.2 mg/dL [facility] Sodium 140 136 - 145 mEq/L [facility] Potassium 3.8 3.5 - 5.1 mEq/L [facility] Chloride 105 98 - 107 mEq/L [facility] Bicarbonate 29 21 - 31 mEq/L [facility] Total Bilirubin 0.4 0.3 - 1.0 mg/dL [facility] Alk. Phosphatase 67 34 - 104 U/L [facility] Aspartate Aminotransferase 16 13 - 39 U/L [facility] Alanine Aminotransferase 16 7 - 52 U/L [facility] Total Protein 7.0 6.4 - 8.9 g/dL [facility] Albumin 4.4 3.5 - 5.7 g/dL [facility] Calcium 9.8 8.6 - 10.3 mg/dL [facility] Anion Gap 9.8 7.0 - 15.0 mEq/L [facility] Globulin 2.6 2.0 - 3.5 g/dL [facility] EGFR 102 >60 ml/min/1. 73m2 [facility] Comment: This eGFR is calculated using 2020 CKD-EPI Creatinine equation without race modifier based on the NKF-ASN task force recommendations Equation: dOUT=912*min(SCr/k,1)a*max(SCr/k,1)-1.200*0.9938Age*1.012 (if female), where SCr is serum creatinine, k is 0.7 for females and 0.9 for males, and a is -0.241 for females and -0.302 for males Blood 02/15/2025 11:0 2 AM CDT Narrative [facility] - 02/15/2025 11:47 AM CDT Release to patient->Immediate IS THE PATIENT REQUIRED TO BE FASTING FOR 8 HOURS?->No Matt Gan MD CHEMISTRY ORDERABLES Final R esult [facility] [place] [address], from Last 3 Months Insurance MEDICARE C [place] MED[place] BCBS [place]PO Care Teams Snuff Drier Relationship Specialty [place] [id number] [address] [facility] [address] [place] [address] PCP - General Endocrinology 05/18/24 Matt Gan MD [address] [place] [id number] Consulting Physician Oncology 06/02/20
--- OUTSIDE RECORDS SUMMARY | 2025-02-22 16:03 | XMS_ITS ---
Author Organization [facility] Address [address], [address] [place] [address] Phone Care Team Providers Care Frame Straightener Name Role Phone Matt Gan MD Unavailable [phone] Cindy Vivas MD Primary Care Provi rome [...] Hodgkin ly mphoma of intrathoracic lymph nodes Treatment Medications Current Day (Day 1 , Cycle 5 - Planned for 11/11/2020) Next Day (Day 15, Cycle 5 - Planned for 11/25/2020) bleomycin (BLENOXANE) chemo infusionbleomycin (BLEOCIN)dacarbazine (DTIC) chemo infusionDOXOrubicin (ADRIAMYCIN)vinBLAStine (VELBAN) chemo infusion dacarbazine (DTIC) 593 mg in sodium chloride 0.9 % 500 [...]
--- OUTSIDE RECORDS SUMMARY | 2025-02-22 16:04 | XMS_ITS | Encounter Summary ---
Author Organization [facility] Address [address] [place] [address] Phone Care Team Providers Care Yarn Sorter Name Role Phone Cruzito Menon Primary Care Provider [phone] Matt Gan MD Unavailable [phone] Cindy Vivas MD Primary Care Provi rome Reason for Visit * Reason Comments Medication Refill Encounter Details Date Type Department Care Team (Late st Contact Info) Description 07/19/2021 Refill [facility] [address] [place] [address] Matt Gan MD [address] [address] Medication Refill Social History Tobacco [...] on file 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 E MODEL MAKER documented in this encounter Plan of Treatment Upcoming Encounters Date Type Department Care Team (Late st Contact Info) Description 07/12/2025 1:15 PM SCALE MODEL MAKER Office Visit [facility] [address] [place] [phone] Matt Gan MD [address] [facility] [place] [address] [place], [place] [address] documented as of this encounter Visit Diagnoses Not on filedocumented in this encounter Additional Health Concerns Assessment Noted Time PHQ-9 Depression Total Score: 0 03/02/20 10:04 AM CDT documented as of this encounter Care Teams Yarn Sorter Relationship Specialty Start Date End Date Cruzito Menon [address] [place] [address] PCP - General Family Medicine 05/26/20 02/06/24 [place] [address] [address] PCP - General Endocrinology 05/18/24 Matt Gan MD [address] [place] [phone] Consulting Physician Oncology 06/02/20 documented as of this encounter
--- OUTSIDE RECORDS SUMMARY | 2025-02-22 16:04 | XMS_ITS | Encounter Summary ---
Author Organization [facility] Address [address] [place] [address] Care Team Providers Care Diesel Fleet Mechanic Name Role Phone Unavailable Primary Care Provider Unavailabl e Encounter Details Date Type Department Care Team (Late st Contact Info) Description 06/14/2020 [facility] [address] [place] [address] Dayo Santillan MD [address] [facility] [address] [place] [id number] Illness, unspecified Social History Tobacco Use Types Packs/Day Years Used Date Smoking Tobacco: Never Assessed Comments Unknown Sex and Gender Information Value Date Recorded Sex Assigned at Not on file Legal Sex Female 11:30 AM CDT Gender Identity Not on file Sexual Orientation Not on file documented as of this encounter Plan of Treatment Not on file documented as of this encounter Procedures Procedure Name Priority Date/Time Associated Diagnosis Comments PATHOLOGY TISSUE Routine 06/10/2020 1:59 PM TRIM TECHNICIAN Illness, unspecified documented in this encounter Results * PATHOLOGY TISSUE (06/10/2020 1:59 PM TRIM TECHNICIAN) Case Report Surgical Pathology Report Case: [id number] Authorizing Provider: Dayo Santillan MD Collected: 06/10/2020 01:59 PM Ordering Location: [facility] Care Pathology Lab Received: 06/14/2020 08:08 AM Pathologist: Nga Mason Mai, DO Specimen: Lymph Node Biopsy 06/15/2020 9:37 AM TRIM TECHNICIAN [facility] Final Diagnosis Lymph node, left supraclavicular, ultrasound-guided core biopsy: - Classic Hodgkin lymphoma. - See description. 06/15/2020 9:37 AM TRIM TECHNICIAN [facility] at [address] [facility] Microscopic Description and Comment Review of the [...] performed on block A1 in the [facility] Department of Pathology, with appropriately reactive controls, [...] testing is required. VH/OEM 06/15/2020 9:37 AM [facility] PATH[facility] Clinical History The patient is a 64 year-old woman with lymphadenopathy. 06/15/2020 9:37 AM [facility] Materials Received Received are 2 slide(s) and 1 block (A1) labeled [id number] along with a copy of the outside pathology report. [place] [address]. All original materials are returned to the referring institution, along with a copy of our final report. 06/15/2020 9:37 AM [facility] Disclaimer The performance characteristics of all immunohistochemical and indirect immunofluorescence stains (if any) cited in this report were determined by the Histopathology Laboratory of [facility]. Some of these tests were developed by [...] the attending (teaching) pathologist. 06/15/2020 9:37 AM [facility] Embedded Images 06/15/2020 9:37 AM TRIM TECHNICIAN [facility] PATHOLOGY LAB Pathology/Cytolo gy BIOPSY OF LYMPH NODE / Unknown 06/10/2020 1:59 PM TRIM TECHNICIAN 06/14/2020 8:08 AM TRIM TECHNICIAN us Dayo Santillan MD LAB - PATHOLOGY/CYTOLOGY ORDER JUSTINO Final Result [facility] PATHOLOGY LAB [address] [phone] documented in this encounter Visit Diagnoses Diagnosis Illness, unspecified documented in this encounter
--- OUTSIDE RECORDS SUMMARY | 2025-02-22 16:04 | XMS_ITS | Clinical Summary ---
Author Organization [facility] Address [facility] [place] [address] Care Team Providers Care Food Stand Manager Name Role Phone Cruzito Menon MD Primary Care Provider [phone] Allergies Active Allergy Reactions Criticality Noted Date [...] Problem Noted Date Diagnosed Date Hodgkin's lymphoma ([facility]) Social History Tobacco Use Types Packs/Day Years Used Date Smoking Tobacco: Every Day Cigarettes Smokeless Tobacco: Never Comments:smokes 3 cigarettes per day Alcohol Use Standard Drinks/Week Comments Not Currently 0 (1 standard drink = 0.6 oz pur e alcohol) Comments Unknown Sex and Gender Information Value Date Recorded Sex Assigned at Not on file Legal Sex Female 8:27 AM RESEARCH INSTRUCTOR Gender Identity Not on file Sexual Orientation Not on file Last Filed Vital Signs Vital Sign Reading Time Taken Comments Blood Pressure 115/71 12/04/2021 2:45 PM CDT Pulse 62 12/04/2021 2:45 PM CDT Temperature 36.7 C (98.1 F) 12/04/2021 11:00 AM CDT Respiratory Rate 18 12/04/2021 2:45 PM CDT Oxygen Saturation 99% 12/04/2021 2:45 PM CDT Inhaled Oxygen Concentration - - Weight 63.4 kg (139 lb 12.4 oz) 022 11:00 AM CDT Height 154.9 cm (5' 1) 12/04/2021 11:0 0 AM CDT Body Mass Index 26.41 12/04/2021 11:00 AM CDT Plan of Treatment Health Maintenance Due Date Last Done Comments Colorectal Cancer Screening Colonoscopy (10 Years) 1956 Hepatitis C 1974 DTaP, Tdap and Td Vaccines (1 - Tdap) 12/17/1975 Pneumococcal Vaccine: 50+ Years (1 of 2 - PCV) 12/17/1975 Zoster Vaccines (1 of 2) 12/17/1975 Mammogram Screening 1996 RSV Immunization or 60+ Years (1 - Risk 60-74 years 1-dose series) 2016 Annual Medicare Wellness Visit 2021 Dexa Scan (General) 2021 COVID-19 Vaccine ( season) 2025 10/30/2021, 02/16/2021, 08/13/2020, Additional history exists Meningococcal B Vaccine Aged Out No l onger eligible based on patient's age to complete this topic Meningococcal Vaccine Aged Out No colten renny eligible based on patient's age to complete this topic RSV Immunizations Under 20 Months Aged Out No longer eligible based on patient's age to complete this topic [place] [address] [place] [address] MEDICARE Care Teams Food Stand Manager Relationship Specialty Start Date End Date Cruzito Menon MD PCP - General FAMILY PRACTICE 12/04/21
--- OUTSIDE RECORDS SUMMARY | 2025-02-22 16:04 | XMS_ITS | Clinical Summary ---
Author Organization [facility] Address [address] [place] [address] Care Team Providers Care Prepress Technician Name Role Phone Unavailable Primary Care Provider Unavailabl e Source Comments [facility],non-owned Affiliates and Associated Physician Practices is amultiple site organization consisting of ambulatory clinics and hospital sitesin [place], [place] and [place]. This disclosure is being madepursuant to the Care Everywhere program and may not contain all information available regarding this patient. Last updated 18.[facility] [place] Social History Tobacco Use Types Packs/Day Years [...] 2006 ZOSTER VACCINE (1 of 2) 2006 DEPRESSION SCREENING 05/20/2024 COVID-19 VACCINE (1 - 2023-2 5 season) 2025 INFLUENZA VACCINE (#1) 2025 Respiratory Syncytial Virus (RSV) Vaccine Pt: or [...] to complete this topic MENINGOCOCCAL (Group B) VACC INE SHARED DECISION-MAKING Aged Out No longer eligibl e based on patient's age to complete this topic MENINGOCOCCAL GROUPS A/C/Y/W VACCINE Aged Out No longer eligible b ased on patient's age to complete [place] [address] [facility]
--- OUTSIDE RECORDS SUMMARY | 2025-02-22 16:04 | XMS_ITS | Clinical Summary ---
Author Organization [facility] Care Team Providers Care Allergy Specialist Name Role Phone Cruzito Menon MD Primary [...] 04/02/2022 Assessment & Plan (04/14/2024 3:42 PM SPEECH LANGUAGE PATHOLOGIST TRAVEL): Chronic, unknown status Patient currently on Synthroid Plan to repeat thyroid function test and further plans based on it Assessment & Plan (04/01/2023 1:10 PM SPEECH LANGUAGE PATHOLOGIST TRAVEL): Chronic, uncontrolled Patient on Synthroid 100 mcg oral daily Plan to repeat thyroid function test today and further plans based on it Assessment & Plan (04/02/2022 3:05 PM SPEECH LANGUAGE PATHOLOGIST TRAVEL): Pt currently on Synthroid 112 mcg oral daily check TSH and further plans based on it 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 current pathological fracture 04/02/2022 Assessment & Plan (04/14/2024 3:41 PM SPEECH LANGUAGE PATHOLOGIST TRAVEL): Chronic, unknown status Status post Reclast infusion 04/06/2022, 04/08/2023 Tolerated well Patient is due for another Reclast after Labs today Fall precautions Continue current vitamin-D and calcium supplements Scheduled for bone density scan soon Follow up in one year Assessment & Plan (04/01/2023 1:11 PM SPEECH LANGUAGE PATHOLOGIST TRAVEL): Status post Reclast infusion 04/06/2022 Tolerated well Patient is due for another Reclast after 04/06/2023 Labs today Fall precautions Continue current vitamin-D and calcium supplements Plan to repeat bone density scan next year Follow up in one year Assessment & Plan (04/02/2022 3:04 PM SPEECH LANGUAGE PATHOLOGIST TRAVEL): Severe worsening Osteoporosis intolerant to oral fosamax Start Reclast infusion ( will schedule this at [facility] infusion center ) Advise to continue current Vitamin D and calcium supplementation Labs today Fall precautions Cut back on smoking discuss with dentist regarding Reclast infusion Follow up in one year Vitamin D deficiency 04/02/2022 Assessment & Plan (04/14/2024 3:42 PM SPEECH LANGUAGE PATHOLOGIST TRAVEL): Check levels today Assessment & Plan (04/01/2023 1:11 PM SPEECH LANGUAGE PATHOLOGIST TRAVEL): Continue current vitamin-D replacement therapy Assessment & Plan (04/02/2022 3:06 PM SPEECH LANGUAGE PATHOLOGIST TRAVEL): Pt on replacement therapy Check levels today and further plans based on it Tobacco abuse 04/02/2022 Assessment & Plan (04/14/2024 3:42 PM SPEECH LANGUAGE PATHOLOGIST TRAVEL): Counseled advised patient to cut back and quit smoking Assessment & Plan (04/01/2023 1:11 PM SPEECH LANGUAGE PATHOLOGIST TRAVEL): Counseled patient to cut back and quit smoking Assessment & Plan (04/02/2022 3:06 PM SPEECH LANGUAGE PATHOLOGIST TRAVEL): Counseled pt to work on cutting back on smoking Dizziness 08/25/2020 Hodgkin's lymphoma 06/16/2020 Lung nodules 06/02/2020 Mediastinal lymphadenopathy 06/02/2020 Immunizations Immunization Administration Dates Next Due Influenza, Quadrivalent, Comfort [...] on file Legal Sex Female 2:11 PM SPEECH LANGUAGE PATHOLOGIST TRAVEL Gender Identity Not on file Sexual Orientation Not on file Obstetrics History Last Filed Vital Signs Vital Sign Reading Time Taken Comments Blood Pressure 120/82 04/13/2024 1:03 PM SPEECH LANGUAGE PATHOLOGIST TRAVEL Pulse 82 04/13/2024 1:03 PM SPEECH LANGUAGE PATHOLOGIST TRAVEL Temperature 37.1 C (98.8 F) 10/19/2021 2:34 PM CDT Respiratory Rate 16 04/13/2024 1:03 PM SPEECH LANGUAGE PATHOLOGIST TRAVEL Oxygen Saturation 98% 10/19/2021 2:34 PM CDT Inhaled Oxygen Concentration - - Weight 65.8 kg (145 lb) 04/01/2023 12:57 PM SPEECH LANGUAGE PATHOLOGIST TRAVEL Height 152.4 cm (5') 04/13/2024 1:03 PM SPEECH LANGUAGE PATHOLOGIST TRAVEL Body Mass Index 74757.37 04/01/2023 12:57 PM SPEECH LANGUAGE PATHOLOGIST TRAVEL Plan of Treatment Health Maintenance Due Date Last Done Comments Breast Cancer Screening-Mammogram 1955 Colon Cancer Screening-Colonoscopy 1956 Depression Screening 1956 Fall Risk Assessment 1956 Hepatitis C Screening 1956 Osteoporosis Screening-Bone Density Scan 1956 DTaP/Tdap/Td Vaccine (1 - Tdap) 12/17/1967 Hepatitis B Screening 1974 Pneumococcal vaccine 65+ (1 of 2 - PCV) 12/17/1975 Zoster Vaccine (1 of 2) 12/17/1975 Well Visit 65+ 2021 Covid-19 Vaccine (4 - 2024-2 6 season) 2025 02/16/2021, 08/13/2020, 07/21/2020 Influenza Vaccine (#1) 2025 , 02/09/2020, 02/25/2019, Additional history exists Insurance Domino MD MEDICARE [facility] MEDICARE BCBS MEDICARE [place] Care Teams Allergy Specialist Relationship Specialty Start Date End Date Cruzito Menon MD PCP - General Family Medicine 06/28/20
[2025-02-22 16:22] LABS: Anion Gap 9 mmol/L (4-12); Blood Urea Nitrogen 17 mg/dL (7-17); Calcium 9.6 mg/dL (8.4-10.2); Carbon Dioxide 28 mmol/L (22-30); Chloride 103 mmol/L (98-107); Estimated Glomerular Filt Rate > 60; Glucose 110 mg/dL (65-110); Potassium 4.0 mmol/L (3.4-5.0); Sodium 140 mmol/L (137-145)
== END 2025-02-22 15:34 | disposition home or self-care (01) ==
PROVIDERS: PCP Physician Assistant; Visit Provider Orthopaedic Surgery
DX: R94.31 Abnormal electrocardiogram [ECG] [EKG] (principal); I10 Essential (primary) hypertension; R53.83 Other fatigue; E78.49 Other hyperlipidemia
CPT/HCPCS: 36415; 80048; 81001; 85025; 93005

== ENCOUNTER 2025-03-08 07:28 | Outpatient (CLI) | payer MEDICARE, SELFPAY ==
--- NOTE | ~2025-03-08 | NM_ITS ---
EXAMINATION: NM xavier stress w perfusion DATE: 03/08/2025 10:36 INDICATION: Chest pain TECHNIQUE: Rest images were obtained following intravenous administration of 10.9 mCi Tc99m tetrofosmin (Myoview). The patient was infused intravenously with Lexiscan (Regadenoson). Then, 31.2 mCi Tc99m tetrofosmin (Myoview) was administered intravenously, and stress images were obtained. Data was efren nstructed into short axis and horizontal and vertical long axis SPECT images. Gated SPECT images were also obtained. COMPARISON: None. FINDINGS: There is no definite reversible or fixed perfusion abnormality to suggest ischemia or infarction. There is normal left ventricular chamber size, wall motion and ejection fraction. Left ventricular ejection fraction measures >70%. IMPRESSION: 1. Normal myocardial perfusion at rest and during stress. 2. Left ventricular ejection fraction measuring >70%. Reviewed, dictated and finalized at location A.
--- OUTSIDE RECORDS SUMMARY | 2025-03-08 07:40 | XMS_ITS | Clinical Summary ---
Author Organization [facility] Address [facility] [place] [address] Care Team Providers Care High School Coach Name Role Phone Cruzito Menon MD Primary Care Provider [phone] Allergies Active Allergy Reactions Criticality Noted Date [...] Problem Noted Date Diagnosed Date Hodgkin's lymphoma Social History Tobacco Use Types Packs/Day Years Used Date Smoking Tobacco: Every Day Cigarettes Smokeless Tobacco: Never Comments:smokes 3 cigarettes per day Alcohol Use Standard Drinks/Week Comments Not Currently 0 (1 standard drink = 0.6 oz pur e alcohol) Comments Unknown Sex and Gender Information Value Date Recorded Sex Assigned at Not on file Legal Sex Female 8:27 AM GRISTMILLER Gender Identity Not on file Sexual Orientation [...] (1 of 2) 12/17/1975 Mammogram Screening 1996 Annual Medicare Wellness Visit 2021 Dexa Scan (General) 2021 COVID-19 Vaccine ( season) 2025 10/30/2021, 02/16/2021, 08/13/2020, Additional history exists Influenza Adult (#1) 2025 02/16/2021, 02/09/2020, 02/25/2019, Additional history exists RSV Immunization or 60+ Years (1 - 1-dose 75+ series) 12/17/2031 Hepatitis A Vaccines Aged Out No long er eligible based on patient's age to complete this topic Meningococcal B Vaccine Aged Out No l onger eligible based on patient's age to complete this topic Meningococcal Vaccine Aged Out No colten renny eligible based on patient's age to complete this topic RSV Immunizations Under 20 Months Aged Out No longer eligible based on patient's age to complete this topic [place] [address] [place] [address] MEDICARE Care Teams High School Coach Relationship Specialty Start Date End Date Cruzito Menon MD PCP - General FAMILY PRACTICE 12/04/21
--- OUTSIDE RECORDS SUMMARY | 2025-03-08 07:40 | XMS_ITS | Clinical Summary ---
Author Organization [facility] Address [address] [place] [address] Care Team Providers Care Senior Nurse Manager Name Role Phone Unavailable Primary Care Provider Unavailabl e Source Comments [facility],non-owned Affiliates and Associated Physician Practices is amultiple site organization consisting of ambulatory clinics and hospital sitesin [place], [place], [place] and [place]. This disclosure is being madepursuant to the Care Everywhere program and may not contain all information available regarding this patient. Last updated 18.[facility] Social History Tobacco Use Types Packs/Day Years [...] patient's age to complete [place] [address] [facility]
--- OUTSIDE RECORDS SUMMARY | 2025-03-08 07:40 | XMS_ITS | Clinical Summary ---
Author Organization [facility] Address [address] [place] [address] Phone Care Team Providers Care Tea Bag Machine Tender Name Role Phone Matt Gan MD Unavailable [phone] Cindy Vivas MD Primary Care Provi rome [...] times daily. 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); Hodgkin lymphoma of intrathoracic lymph nodes, unspecified Hodgkin lymphoma type (HCC); Lymphadenopathy 02/15/2025 12:00 PM CDT Ancillary Procedure [facility] [address] [address] 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); Hodgkin lymphoma of intrathoracic lymph nodes, unspecified Hodgkin lymphoma type (HCC); Lymphadenopathy 02/15/2025 11:00 AM CDT Lab [facility] [address] [address] [facility] 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 [address] [place] [address] Matt Gan MD from Last [...] on file Legal Sex Female 8:50 AM VICE PRESIDENT QUALITY ASSURANCE Gender Identity Not on file Sexual Orientation [...] st Contact Info) Description 07/12/2025 1:15 PM VICE PRESIDENT QUALITY ASSURANCE Office Visit [facility] [address] [address] Matt Gan MD [address] [place] [address] [place] [address] [id number] Health Maintenance Due Date Last Done Comments [...] comparison. Musculoskeletal: Advanced degeneration of the hips, [id number]-right. No destructive osseous lesion. Vertebral body heights [...] incomparison. Musculoskeletal: Advanced degeneration of the hips, [id number]-right. Nodestructive osseous lesion. Vertebral body heights maintained. [...] WBC 6.1 4.0 - 10.0 10*3/uL CANCER IN HOME T[facility]OR [facility] HGB 14.5 11.2 - 15.7 g/dL CANCER IN HOME T[facility] HCT 44.2 34.1 - 44.9 % [facility] IN [facility] T[facility] PLT 221 163 - 369 10*3/uL [facility] IN HOME T[facility] MPV 9.9 9.4 - 12.4 fL [facility] IN HOME T[facility] RBC 4.79 3.93 - 5.22 10*6/uL [facility] IN HOME T[facility]OR [facility] MCV 92 79 - 95 fL [facility] CE [facility] SPECIALISTS [facility] MCH 30.3 25.6 - 32.2 pg CANCER IN HOME TUTOR [facility] MCHC 32.8 32.2 - 36.5 g/dL CANCER IN HOME TUTOR [facility] RDW 12.5 11.6 - 14.4 % [facility] IN HOME T[facility] Neutrophils % 49.6 36.0 - 66.0 % CAN[facility] IN HOME T[facility] Lymphocytes % 33.8 19.0 - 40.0 % CANCER IN HOME TUTOR [facility] Monocytes % 7.7 4.1 - 12.1 % CAN[facility] IN HOME T[facility]OR [facility] Eosinophils % 7.7(H) 0.0 - 3.5 % CAN[facility] IN HOME T[facility]OR [facility] Basophils % 1.0 0.0 - 1.0 % CANCER IN HOME TUTOR [facility] Absolute Neutrophils 3.0 1.4 - 6.6 10*3/uL CAN[facility]ER IN HOME TUTOR [facility] Absolute Lymphocytes 2.1 0.8 - 4.0 10*3/uL [facility] Absolute Monocytes 0.5 0.2 - 1.2 10*3/uL [facility] IN HOME T[facility] Absolute Eosinophils 0.5(H) 0.0 - 0.4 10*3/uL CAN[facility]ER IN HOME TUTOR [facility] Absolute Basophils 0.1 0.0 - 0.1 10*3/uL CAN[facility] IN HOME T[facility]OR [facility] 02/15/2025 11:0 2 AM CDT us Matt Gan MD LAB SEND OUTS Final Result Performing Organization Address [facility] Co de Phone Number [facility] [address] [place] [address], * LACTATE DEHYDROGENASE (LD) (02/15/2025 11:02 AM CDT) LDH 158 140 - 271 U/L [facility] Blood 02/15/2025 11:0 2 AM CDT Narrative [facility] - 02/15/2025 11:47 AM CDT Release to patient->Immediate us Matt Gan MD CHEMISTRY ORDERABLES Final R esult CANCER IN HOME TUTOR [facility] [place] [address], * (ABNORMAL) CMP (COMPREHENSIVE METABOLIC PANEL) (02/15/2025 11:02 AM CDT) Glucose 94 70 - 105 mg/dL [facility] Blood Urea Nitrogen 12 7 - 25 mg/dL [facility] Creatinine 0.5(L) 0.6 - 1.2 mg/dL [facility] Sodium 140 136 - 145 mEq/L [facility] Potassium 3.8 3.5 - 5.1 mEq/L [facility] Chloride 105 98 - 107 mEq/L [facility] Bicarbonate 29 21 - 31 mEq/L [facility] Total Bilirubin 0.4 0.3 - 1.0 mg/dL [facility] Alk. Phosphatase 67 34 - 104 U/L [facility] Aspartate Aminotransferase 16 13 - 39 U/L [facility] Alanine Aminotransferase 16 7 - 52 U/L [facility] Total Protein 7.0 6.4 - 8.9 g/dL [facility] Albumin 4.4 3.5 - 5.7 g/dL [facility] Calcium 9.8 8.6 - 10.3 mg/dL [facility] Anion Gap 9.8 7.0 - 15.0 mEq/L [facility] Globulin 2.6 2.0 - 3.5 g/dL [facility] EGFR 102 >60 ml/min/1. 73m2 [facility] Comment: This eGFR is calculated using 2020 CKD-EPI Creatinine equation without race modifier based on the NKF-ASN task force recommendations Equation: kXXP=898*min(SCr/k,1)a*max(SCr/k,1)-1.200*0.9938Age*1.012 (if female), where SCr is serum creatinine, k is 0.7 for females and 0.9 for males, and a is -0.241 for females and -0.302 for males Blood 02/15/2025 11:0 2 AM CDT Narrative [facility]CER IN HOME TUTOR OF [facility] - 02/15/2025 11:47 AM CDT Release to patient->Immediate IS THE PATIENT REQUIRED TO BE FASTING FOR 8 HOURS?->No Matt Gan MD CHEMISTRY ORDERABLES Final R esult CANCER IN HOME TUTOR [facility] [place] [address], from Last 3 Months Insurance MEDICARE C [place] MEDICARE C BCBS PPO Care Teams Tea Bag Machine Tender Relationship Specialty [place] [id number] [facility] [address] [place] [address] PCP - General Endocrinology 05/18/24 Matt Gan MD [address] [place] [phone] Consulting Physician Oncology 06/02/20
--- OUTSIDE RECORDS SUMMARY | 2025-03-08 07:40 | XMS_ITS | Encounter Summary ---
Author Organization [facility] Address [address] [place] [address] Care Team Providers Care Dental Scheduler Name Role Phone Unavailable Primary Care Provider Unavailabl e Encounter Details Date Type Department Care Team (Late st Contact Info) Description 06/14/2020 Lab Requisition [facility] Pathology Lab [address] [place] [address] Dayo Santillan MD [address] [place] [address] [id number] Illness, unspecified Social History Tobacco Use Types [...] Comments PATHOLOGY TISSUE Routine 06/10/2020 1:59 PM PATIENT REGISTRATION MANAGER Illness, unspecified documented in this encounter Results * PATHOLOGY TISSUE (06/10/2020 1:59 PM PATIENT REGISTRATION MANAGER) Case Report Surgical Pathology Report Case: [id number] Authorizing Provider: Dayo Santillan MD Collected: 06/10/2020 01:59 PM Ordering Location: [facility] Care Pathology Lab Received: 06/14/2020 08:08 AM Pathologist: Nga Mason Mai, DO Specimen: Lymph Node Biopsy 06/15/2020 9:37 AM PATIENT REGISTRATION MANAGER [facility] PATHOLOGY [facility] Final Diagnosis Lymph node, left supraclavicular, ultrasound-guided core biopsy: - Classic Hodgkin lymphoma. - See description. 06/15/2020 9:37 AM PATIENT REGISTRATION MANAGER [facility] at [address] [facility] Microscopic Description and Comment [...] are performed on block A1 in the [facility] Department of Pathology, with appropriately reactive [...] testing is required. VH/OEM 06/15/2020 9:37 AM [facility] PATHOLOGY LAB Clinical History The patient is a 64 year-old woman with lymphadenopathy. 06/15/2020 9:37 AM [facility] PATHOLOGY LAB Materials Received Received are 2 slide(s) and 1 block (A1) labeled [id number] along with a copy of the outside pathology report. [place] [address]. All original materials are returned to the referring institution, along with a copy of our final report. 06/15/2020 9:37 AM [facility] PATHOLOGY LAB Disclaimer The performance characteristics of all immunohistochemical and indirect immunofluorescence stains (if any) cited in this report were determined by the Histopathology Laboratory of [facility]. Some of these tests were developed [...] the attending (teaching) pathologist. 06/15/2020 9:37 AM [facility] PATHOLOGY LAB Embedded Images 06/15/2020 9:37 AM PATIENT REGISTRATION MANAGER [facility] PATHOLOGY LAB Pathology/Cytolo gy BIOPSY OF LYMPH NODE / Unknown 06/10/2020 1:59 PM PATIENT REGISTRATION MANAGER 06/14/2020 8:08 AM PATIENT REGISTRATION MANAGER us Dayo Santillan MD LAB - PATHOLOGY/CYTOLOGY ORDER JUSTINO Final Result [facility] PATHOLOGY LAB [address] [phone] documented in this encounter Visit Diagnoses Diagnosis Illness, unspecified documented in this encounter
--- OUTSIDE RECORDS SUMMARY | 2025-03-08 07:40 | XMS_ITS | Patient Health Record ---
Author Organization [facility] Address [address] [place] [address] Care Team Providers Care Salesperson Burial Needs Name Role Phone Sinan BULLARD, Cruzito Primary Care Provider Bart Murphy Dilcia Unavailable [phone] Reason For Referral No Information Medications Medication SIG (Take, Route, Frequency, Duration) Notes Start Date End Date Status Atorvastatin Calcium 40 MG take 1 tablet (40 mg) by oral route once daily Oral 1 Active Ibuprofen 200 mg take 4 tablets every 4 hours Oral Active Effexor XR 150 MG take 1 capsule (150 mg) by oral route once daily Oral 1 Active Tylenol Extra Strength 500 MG take 2 tablets (1,000 mg) by oral route every 4 hours as needed not to exceed 8 tablets per 24hrs Oral 6 Active CITRACAL + D3 1200 mg take 2 capsules daily - *Pick strength-form from [employer] for eRX* Active Vitamin D (Ergocalciferol) 1.25 MG (85781 UT) take 1 capsule weekly Oral Active Levothyroxine Sodium 112 MCG take 1 capsule (112 mcg) by oral route once daily Oral 1 Active Plan Of Treatment No Information Insurance Providers Payer Name Payer Address Payer Phone Subscriber Number Group Number Insured Name Patient Relationship to Insured Coverage Start Date Coverage End Date DO NOT USE AR [id number] Maribeth Rodriguez Self - patient is the insured [address] [place] [address] [id number] Maribeth Rodriguez Self - patient is the insured Medical (General) History Surgical History Surgery Date(Month/Year) Knee replacement; 2021-12-22
--- OUTSIDE RECORDS SUMMARY | 2025-03-08 07:40 | XMS_ITS ---
Author Organization [facility] Address [address] [place] [address] Phone Care Team Providers Care Emergency Care Attendant Name Role Phone Matt Gan MD Unavailable [phone] Cindy Vivas MD Primary Care Provi rome [...]
--- OUTSIDE RECORDS SUMMARY | 2025-03-08 07:41 | XMS_ITS | Clinical Summary ---
Author Organization [facility] Care Team Providers Care Mason Foreman/Superintendant Name Role Phone Cruzito Menon MD Primary Care Provider [phone] Allergies Active Allergy Reactions Criticality Noted Date [...] 04/02/2022 Assessment & Plan (04/14/2024 3:42 PM FLIGHT INFORMATION EXPEDITER): Chronic, unknown status Patient currently on Synthroid Plan to repeat thyroid function test and further plans based on it Assessment & Plan (04/01/2023 1:10 PM FLIGHT INFORMATION EXPEDITER): Chronic, uncontrolled Patient on Synthroid 100 mcg oral daily Plan to repeat thyroid function test today and further plans based on it Assessment & Plan (04/02/2022 3:05 PM FLIGHT INFORMATION EXPEDITER): Pt currently on Synthroid 112 mcg oral daily check TSH and further plans based on it 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 current pathological fracture 04/02/2022 Assessment & Plan (04/14/2024 3:41 PM FLIGHT INFORMATION EXPEDITER): Chronic, unknown status Status post Reclast infusion 04/06/2022, 04/08/2023 Tolerated well Patient is due for another Reclast after Labs today Fall precautions Continue current vitamin-D and calcium supplements Scheduled for bone density scan soon Follow up in one year Assessment & Plan (04/01/2023 1:11 PM FLIGHT INFORMATION EXPEDITER): Status post Reclast infusion 04/06/2022 Tolerated well Patient is due for another Reclast after 04/06/2023 Labs today Fall precautions Continue current vitamin-D and calcium supplements Plan to repeat bone density scan next year Follow up in one year Assessment & Plan (04/02/2022 3:04 PM FLIGHT INFORMATION EXPEDITER): Severe worsening Osteoporosis intolerant to oral fosamax Start Reclast infusion ( will schedule this at [facility] infusion center ) Advise to continue current Vitamin D and calcium supplementation Labs today Fall precautions Cut back on smoking discuss with dentist regarding Reclast infusion Follow up in one year Vitamin D deficiency 04/02/2022 Assessment & Plan (04/14/2024 3:42 PM FLIGHT INFORMATION EXPEDITER): Check levels today Assessment & Plan (04/01/2023 1:11 PM FLIGHT INFORMATION EXPEDITER): Continue current vitamin-D replacement therapy Assessment & Plan (04/02/2022 3:06 PM FLIGHT INFORMATION EXPEDITER): Pt on replacement therapy Check levels today and further plans based on it Tobacco abuse 04/02/2022 Assessment & Plan (04/14/2024 3:42 PM FLIGHT INFORMATION EXPEDITER): Counseled advised patient to cut back and quit smoking Assessment & Plan (04/01/2023 1:11 PM FLIGHT INFORMATION EXPEDITER): Counseled patient to cut back and quit smoking Assessment & Plan (04/02/2022 3:06 PM FLIGHT INFORMATION EXPEDITER): Counseled pt to work on cutting back [...] on file Legal Sex Female 2:11 PM FLIGHT INFORMATION EXPEDITER Gender Identity Not on file Sexual Orientation Not on file Obstetrics History Last Filed Vital Signs Vital Sign Reading Time Taken Comments Blood Pressure 120/82 04/13/2024 1:03 PM FLIGHT INFORMATION EXPEDITER Pulse 82 04/13/2024 1:03 PM FLIGHT INFORMATION EXPEDITER Temperature 37.1 C (98.8 F) 10/19/2021 2:34 PM CDT Respiratory Rate 16 04/13/2024 1:03 PM FLIGHT INFORMATION EXPEDITER Oxygen Saturation 98% 10/19/2021 2:34 PM CDT Inhaled Oxygen Concentration - - Weight 65.8 kg (145 lb) 04/01/2023 12:57 PM FLIGHT INFORMATION EXPEDITER Height 152.4 cm (5') 04/13/2024 1:03 PM FLIGHT INFORMATION EXPEDITER Body Mass Index 35082.37 04/01/2023 12:57 PM FLIGHT INFORMATION EXPEDITER Plan of Treatment Health Maintenance Due Date [...] , 02/09/2020, 02/25/2019, Additional history exists Insurance [place] [facility]ICARE [facility] MEDICARE [place] MEDICARE [place] Care Teams Mason Foreman/Superintendant Relationship Specialty Start Date End Date Cruzito Menon MD PCP - General Family Medicine 06/28/20
--- OUTSIDE RECORDS SUMMARY | 2025-03-08 07:41 | XMS_ITS | Encounter Summary ---
Author Organization [facility] Address [address] [place] [address] Phone Care Team Providers Care Dairy Cattle Farmer Name Role Phone Cruzito Menon Primary Care Provider Matt Gan MD Unavailable Cindy Vivas MD Primary Care Provi rome Reason for Visit * Reason Comments Medication Refill Encounter Details Date Type Department Care Team (Late st Contact Info) Description 07/19/2021 Refill [facility] [address] [place] [address] Matt Gan MD [address] [address] Medication Refill Social History Tobacco [...] on file Legal Sex Female 8:50 AM PROCESS CONTROL SUPERVISOR Gender Identity Not on file Sexual Orientation Not on file documented as of this encounter Miscellaneous Notes * Telephone Encounter - Shalini Garzon LPN - 07/19/2021 8:11 AM PROCESS CONTROL SUPERVISOR Please refill if appropriate. ESS CONTROL SUPERVISOR documented in this encounter Plan of Treatment Upcoming Encounters Date Type Department Care Team (Late st Contact Info) Description 07/12/2025 1:15 PM PROCESS CONTROL SUPERVISOR Office Visit [facility] [address] [place] [phone] Matt Gan MD [address] [facility] [address] [place], [place] [phone] documented as of this encounter Visit Diagnoses Not on filedocumented in this encounter Additional Health Concerns Assessment Noted Time PHQ-9 Depression Total Score: 0 03/02/20 10:04 AM CDT documented as of this encounter Care Teams Dairy Cattle Farmer Relationship Specialty Start Date End Date Cruzito Menon [address] [place] [address] PCP - General Family Medicine 05/26/20 02/06/24 [place] [address] [address] PCP - General Endocrinology 05/18/24 Matt Gan MD [address] [place] [phone] Consulting Physician Oncology 06/02/20 documented as of this encounter
--- NOTE | 2025-03-08 09:17 | EST_ITS ---
Patient Info Name: Maribeth Rodriguez Age: 69 years : 1955 Gender: Female Ht: 60 in Wt: 135 lbs BSA: 1.63 m2 HR: 67 bpm BP: 146 / 83 mmHg Exam Date: 03/08/2025 9:17 AM Patient Status: O Admit Date: 03/08/2025 Exam Type: CA stress xavier w NM A regadenoson stress test was performed. Staff Referring Physician: Keenan Xie DO Attending Provider: Keenan Xie DO Exercise Technologist: Yoly Murry Exercise Physician: Keenan Xie DO Summary 1. 1. Negative lexiscan stress test for ischemic ST change by ECG criteria. 2. 2. Baseline hypertension. 3. 3. Nuclear scan to follow and will be reported separately. Please correlate with it. 4. 4. Patient informed of the above results. Protocol: Lexiscan Stress ECG Details Stage: REST Duration (min): 1 min : 0 sec HR (bpm): 65 SBP (mmHg): 146 DBP (mmHg): 83 Stage: REST Duration (min): 5 min : 21 sec HR (bpm): 68 SBP (mmHg): 146 DBP (mmHg): 83 Stage: STAGE 1 Duration (min): 0 min : 59 sec HR (bpm): 94 SBP (mmHg): 144 DBP (mmHg): 93 Stage: RECOVERY Duration (min): 1 min : 0 sec HR (bpm): 106 SBP (mmHg): 144 DBP (mmHg): 93 Stage: RECOVERY Duration (min): 2 min : 0 sec HR (bpm): 99 SBP (mmHg): 144 DBP (mmHg): 93 Stage: RECOVERY Duration (min): 3 min : 0 sec HR (bpm): 91 SBP (mmHg): 167 DBP (mmHg): 88 Stage: RECOVERY Duration (min): 4 min : 0 sec HR (bpm): 85 SBP (mmHg): 167 DBP (mmHg): 88 Stage: RECOVERY Duration (min): 5 min : 0 sec HR (bpm): 87 SBP (mmHg): 165 DBP (mmHg): 87 Stage: RECOVERY Duration (min): 6 min : 0 sec HR (bpm): 83 SBP (mmHg): 165 DBP (mmHg): 87 Stage: RECOVERY Duration (min): 6 min : 32 sec HR (bpm): 80 SBP (mmHg): 165 DBP (mmHg): 87 Rest HR: 68 bpm Peak HR: 107 bpm Rest Sys BP: 146 mmHg Peak Sys BP: 167 mmHg Max Pred HR: 152 bpm % Max Pred HR: 70 % Target HR: 129 bpm Max RPP: 17,869 bpm*mmHg Termination Reason: Completed protocol Cardiac Symptoms: Shortness of breath Total Time: 1 min : 0 sec Rest Tafoya BP: 83 mmHg Peak Tafoya BP: 88 mmHg Total Dose: 0.4 mg Resting ECG Sinus rhythm. Stress ECG [address] depression in inferior leads and V3-V6. Arrhythmias None. Report Signatures
== END 2025-03-08 07:29 | disposition home or self-care (01) ==
PROVIDERS: PCP Physician Assistant; Visit Provider Internal Medicine Cardiovascular Disease
DX: R07.9 Chest pain, unspecified (principal)
CPT/HCPCS: 78452; 93017; A9502; J2785